=== PATIENT | male | born 1945 | race Caucasian/White ===

== ENCOUNTER → 2016-04-19 20:17 | Outpatient (CLI) | payer MEDICARE, OTHER ==
[2014-02-23 22:22] VITALS: BMI 36.1
[~2016-04-19 20:17] MED LIST: ASPIRIN325 MG PO; BETAPACE 120 M120 MG PO; CARDIZEM CD120 MG PO; CARDURA4 MG PO; GAS-X80 MG PO; HUMALOG MIX 75/10 ML SC; HUMALOG MIX 75/10 ML SQ; HYDRALAZINE HCL50 MG PO; IPRAT-ALBUT 0.5-3 ML UPD; LASIX INJ40 MG/4 ML IVP; LASIX40 MG PO; NITROSTAT0.4 MG SL; PLAVIX75 MG PO; POTASSIUM CHLO10 ME1 PO; PRAVACHOL40 MG PO; PRINIVIL20 MG PO; PROTONIX40 MG PO; REGLAN5 MG PO; ROCEPHIN 1 GM IN1 GM IVPB; RYTHMOL SR225 MG PO; RYTHMOL225 MG PO; STERAPRED 5MG 125 MG PO; ZESTRIL40 MG PO; ZOFRAN4 MG PO
== END | disposition home or self-care (01) ==
LOC: D.SLEEP 20:00
DX: G47.33 Obstructive sleep apnea (adult) (pediatric) (principal)

== ENCOUNTER → 2016-05-10 12:28 | Outpatient (CLI) | payer MEDICARE, OTHER ==
[2014-02-23 22:22] VITALS: BMI 36.1
== END | disposition home or self-care (01) ==
LOC: D.RT 05-04 08:00 → D.RAD 05-04 09:00 → D.RT 12:28
DX: J44.9 Chronic obstructive pulmonary disease, unspecified (principal)

== ENCOUNTER → 2016-08-03 08:29 | Outpatient (CLI) | payer MEDICARE, OTHER ==
[2014-02-23 22:22] VITALS: BMI 36.1
== END | disposition home or self-care (01) ==
LOC: D.US 08:29
DX: I71.4 Abdominal aortic aneurysm, without rupture (principal); I65.23 Occlusion and stenosis of bilateral carotid arteries

== ENCOUNTER → 2017-10-25 10:03 | Outpatient (CLI) | payer MEDICARE, OTHER ==
[2014-02-23 22:22] VITALS: BMI 36.1
== END | disposition home or self-care (01) ==
LOC: D.US 10:03
DX: I71.4 Abdominal aortic aneurysm, without rupture (principal); I65.23 Occlusion and stenosis of bilateral carotid arteries

== ENCOUNTER → 2018-10-03 15:01 | Outpatient (CLI) | payer MEDICARE, OTHER ==
[2014-02-23 22:22] VITALS: BMI 36.1
[~2018-10-03 15:01] MED LIST changes: +CARDIZEM CD180 MG PO; +LEXAPRO10 MG PO; +NOVOLIN 70/30 110 ML SC
== END | disposition home or self-care (01) ==
LOC: D.RT 09-20 10:00 → D.RAD 13:45 → D.RT 16:00
PROVIDERS: ATTEND Internal Medicine Pulmonary Disease
DX: J44.9 Chronic obstructive pulmonary disease, unspecified (principal)

== ENCOUNTER 2018-10-07 08:36 | Inpatient (IN) | payer MEDICARE, OTHER ==
[2018-10-07] VITALS (15 sets, daily range): BP systolic 130–162; BP diastolic 57–79; BMI 36.2
[~2018-10-07] VITALS: Ht 182.9 cm; Wt 120.8 kg
--- NOTE | ~2018-10-07 | CN ---
PATIENT NAME:CHATO DRIVER MEDICAL RECORD: [id number] : 41 LOCATION:[place].[id number] ADMIT DATE: 10/07/18 ACCOUNT: [id number] CONSULTING PHYSICIAN: DANE SHERMAN MD REFERRING PHYSICIAN: KM DE SOUZA MD DATE OF CONSULTATION: 10/07/2018 REQUESTING PHYSICIAN: Aguila Mcduffie MD REASON FOR CONSULTATION: Acute hypoxic hypercapnic respiratory failure and respiratory acidosis. HISTORY OF PRESENT ILLNESS: Mr. Driver is a 72-year-old gentleman who has a history of severe COPD with FEV1 less than 30. The patient underwent PFTs a few days ago and he was doing well for the last 3 days, he has worsening shortness of breath, coughing and the patient was getting more lethargic, so the patient was brought into the ER. On evaluation, he was found out that his CO2 was 84.2 and the pH was 7.18. The patient was put on BiPAP and now he is more awake and alert. Denies any fever and chills, no night sweats. PAST MEDICAL HISTORY: 1. COPD of severe degree. 2. Chronic hypoxic respiratory failure. 3. Obstructive sleep apnea. 4. Gastroesophageal reflux disease. 5. History of carotid artery occlusion. 6. History of abdominal aortic aneurysm without rupture, followed by Dr. Crocker. 7. Tobacco dependence syndrome. PERSONAL AND SOCIAL HISTORY: The patient still continues to smoke. He is a nondrinker. FAMILY HISTORY: Noncontributory. PHYSICAL EXAMINATION: GENERAL: Now, the patient is lying comfortably in bed. He is in mild respiratory distress. He is on BiPAP. VITAL SIGNS: The blood pressure 159/79, pulse is 90, respirations 28, temperature 97.7, and SpO2 is 95% on BiPAP. HEENT: Conjunctivae are pink. Sclerae are not icteric. NECK: Supple, no JVD. CHEST: Chest excursion minimal on both sides. Bilateral crackles and wheeze on forceful expiration. HEART: Rate and rhythm regular, normal sound, no murmur. ABDOMEN: Soft, bowel sounds present. No hepatosplenomegaly. RECTAL: Deferred. EXTREMITIES: No cyanosis, no clubbing. There is 1+ pedal edema. CENTRAL NERVOUS SYSTEM: The patient is awake and alert. There are no obvious cranial nerve abnormalities. LABORATORY DATA: CBC: WBC 9.2, hemoglobin 13.7, hematocrit 43.3, the platelet count 131. Chemistry: Sodium 141, potassium 4.7, BUN is 20, creatinine 1.8. CONSULT REPORT [id number] CHATO DRIVER The proBNP is 1826. The troponin is less than 0.017. Albumin is 3.4. The glucose is 178, BUN is 20, creatinine 1.8. ABG: The pH is 7.188, pCO2 is 84.2, the pO2 is 210, and bicarbonate is 32. IMPRESSION: 1. Sfsox-lc-xhsfsvw hypoxic hypercapnic respiratory failure. 2. Respiratory acidosis secondary to agwlb-gq-mrdqvnl hypoxic hypercapnic respiratory failure. 3. Acute exacerbation of chronic obstructive pulmonary disease. 4. Pulmonary edema. 5. Congestive heart failure. 6. Obesity hypoventilation syndrome. 7. Obstructive sleep apnea. 8. Tobacco dependence syndrome. 9. Gastroesophageal reflux disease. RECOMMENDATIONS: 1. Continue BiPAP at the present setting. 2. Albuterol/ipratropium nebulizer, Brovana and budesonide nebulizer. 3. Adjust the dose of methylprednisolone IV. 4. Continue empiric antibiotic. 5. Lasix 40 mg times 1. 6. Cardiac echo. 7. Consult cardiology. 8. THE PATIENT'S CODE STATUS IS DNR. 9. Follow up labs and chest radiograph. Discussed with family in length. Dr. Mcduffie, thank you for involving me in the care of Mr. Driver. TRANSINT:[id number] Voice Confirmation ID: [id number] DOCUMENT ID: [id number] DANE SHERMAN MD CC: [id number] DICTATION DATE: 10/07/18 1336 THERAPIST'S ASSISTANT: 10/07/18 5062 ADM IN [facility] [address] [place] [address]
[~2018-10-07 08:36] MED LIST changes: -CARDIZEM CD180 MG PO; -LEXAPRO10 MG PO; -NOVOLIN 70/30 110 ML SC
--- NOTE | 2018-10-07 08:46 | NUR ---
EMS REPORTS PT RECIEVED DUONEB AND 125MG SOLUMEDROL
[2018-10-07 08:51] LABS: BASOPHILS 0.2 % (0-2); EOSINOPHILS 2.1 % (0-7); HEMATOCRIT 43.3 % (42.0-54.0); HEMOGLOBIN 13.7 g/dL (13.5-17.5); IMMATURE GRANULOCYTES 0.4 % (0-5); MCH 27.9 pg (26.0-34.0); MCHC 31.6 g/dL (31.0-37.0); MCV 88.2 fL (80.0-100.0); MEAN PLATELET VOLUME 10.6 fL (7.4-10.4); MONOCYTES 8.2 % (2-11); NEUTROPHILS 75.1 % (40-80); PLATELET COUNT 131 10x3/uL (130-400); RBC 4.91 10x6/uL (4.20-6.10); RDW 13.6 % (11.5-14.5); WBC 9.2 10x3/uL (4.8-10.8)
[2018-10-07 09:17] LABS: ALBUMIN 3.4 g/dL (3.4-5.0); ALKALINE PHOSPHATASE 63 U/L (46-116); ALT (SGPT) 11 U/L (10-68); BILIRUBIN - TOTAL 0.43 mg/dL (0.2-1.3); CALC OSMOLALITY 287 mosm/kg (275-300); CALCIUM 8.3 mg/dL (8.5-10.1); CARBON DIOXIDE 31.6 mmol/L (21.0-32.0); CHLORIDE - SERUM 105 mmol/L (98-107); CREATININE - SERUM 1.8 mg/dL (0.6-1.3); POTASSIUM - SERUM 4.7 mmol/L (3.5-5.1); PROTEIN - SERUM 7.6 g/dL (6.4-8.2); SODIUM 141 mmol/L (136-145); UREA NITROGEN 20 mg/dL (7-18); eGFR NON AFRICAN AMERICAN 39 mL/min (90-120)
[2018-10-07 09:18] LABS: APTT 28.3 SECONDS (22.8-39.4); INR 1.18 (0.85-1.17); PROTIME 14.5 SECONDS (11.6-15.0)
[2018-10-07 09:19] LABS: GLUCOSE 178 mg/dL (74-106)
[2018-10-07 09:29] LABS: CKMB 1.5 U/L (0.0-3.6); CREATINE KINASE 88 UL (21-232); PRO BNP 1826 pg/mL (0-125); TROPONIN-I < 0.017 ng/mL (0.000-0.060)
--- NOTE | 2018-10-07 10:45 | NUR ---
PATIENT AWAKE AND ALERT; REPORTS, "I DON'T KNOW WHAT HAPPENED. I REMEMBER TALKING TO EMS AND THEN I DON'T REMEMBER ANYTHING AFTERWARDS." HE IS AWAKE AND ALERT. APPROPRIATE RESPONSES.
[2018-10-07] MEDS ORDERED: NOVOLIN 70/30 110 ML SC (12:08)
[2018-10-07] MEDS ORDERED: CARDIZEM CD180 MG PO (12:14)
[2018-10-07] MEDS ORDERED: BETAPACE 120 M120 MG PO (12:15)
[2018-10-07] MEDS ORDERED: LEXAPRO10 MG PO (12:16)
--- NOTE | 2018-10-07 12:24 | NUR ---
PER DR SHERMAN, DO NOT INFUSE BOLUS RECIEVED ON TRANSFER.
--- NOTE | 2018-10-07 13:55 | NUR ---
DR LINDSAY PAGED REGARDING CONSULT.
--- NOTE | 2018-10-07 13:58 | NUR ---
DR LINDSAY NOTIFIED OF CONSULT NO NEW ORDERS RECIEVED.
--- NOTE | 2018-10-07 14:13 | NUR ---
DR JONES PAGED REGARDING HTN.
--- NOTE | 2018-10-07 15:18 | NUR ---
PER DR JONES RESTART PTS HOME CARDIAC MEDS.
--- NOTE | 2018-10-07 17:05 | NUR ---
425 ML YELLOW URINE NOTED TO URINAL. NO ACUTE DISTRESS NOTED. VSS. WILL CONTINUE PLAN OF CARE.
--- NOTE | 2018-10-07 18:01 | NUR ---
CHG BATH GIVEN AT THIS TIME. TOTAL LINEN CHANGE PROVIDED AT THIS TIME. NO ACUTE DISTRESS NOTED. WILL CONTINUE PLAN OF CARE.
--- NOTE | 2018-10-07 19:00 | NUR ---
SHIFT ASSESSMENT COMPLETE. VS STABLE. NO VISUAL CUES OF DISTRESS NOTED. WILL MONITOR.
--- NOTE | 2018-10-07 21:00 | NUR ---
VS STABLE. NO VISUAL CUES OF DISTRESS NOTED. WILL MONITOR.
--- NOTE | 2018-10-07 23:00 | NUR ---
VS STABLE. NO VISUAL CUES OF DISTRESS NOTED. WILL MONITOR.
[2018-10-08] VITALS (24 sets, daily range): BP systolic 123–169; BP diastolic 60–83
--- NOTE | 2018-10-08 01:00 | NUR ---
VS STABLE. NO VISUAL CUES OF DISTRESS NOTED. WILL MONITOR.
--- NOTE | 2018-10-08 03:00 | NUR ---
VS STABLE. NO VISUAL CUES OF DISTRESS NOTED. WILL MONITOR.
[2018-10-08 03:54] LABS: BASOPHILS 0 % (0-2); EOSINOPHILS 0 % (0-7); HEMATOCRIT 38.1 % (42.0-54.0); HEMOGLOBIN 12.2 g/dL (13.5-17.5); IMMATURE GRANULOCYTES 0.3 % (0-5); LYMPHOCYTES 7.4 % (15-50); MCH 27.8 pg (26.0-34.0); MCV 86.8 fL (80.0-100.0); MEAN PLATELET VOLUME 10.4 fL (7.4-10.4); MONOCYTES 2.3 % (2-11); PLATELET COUNT 135 10x3/uL (130-400); RBC 4.39 10x6/uL (4.20-6.10); RDW 13.4 % (11.5-14.5); WBC 7.7 10x3/uL (4.8-10.8)
[2018-10-08 03:56] LABS: ANION GAP 12.5 mmol/L (8-16); CALCIUM 8.3 mg/dL (8.5-10.1); CARBON DIOXIDE 27.1 mmol/L (21.0-32.0); CREATININE - SERUM 2.1 mg/dL (0.6-1.3); POTASSIUM - SERUM 4.6 mmol/L (3.5-5.1)
--- NOTE | 2018-10-08 05:00 | NUR ---
VS STABLE. NO VISUAL CUES OF DISTRESS NOTED. WILL MONITOR.
--- NOTE | 2018-10-08 07:55 | NUR ---
UP IN BED ON BIPAP AT THIS TIME. NO ACUTE DISTRESS NOTED. PT DENIES ANY NEEDS. 500ML YELLOW URINE NOTED TO URINAL. VSS. PT ASSISTED WITH REPOSITIONING Q2H. WILL CONTINUE PLAN OF CARE.
--- NOTE | 2018-10-08 08:15 | NUR ---
BIPAP REMOVED FOR PT TO EAT BREAKFAST, PT ONLY LASTED A FEW MINUTES BEFORE FEELING LIKE HE NEEDED THE BIPAP BACK IN PLACE BECAUSE OF SHORTNESS OF BREATH. BIPAP IN PLACE.NO ACUTE DISTERSS NOTED. ATBEDSIDE. WILL CNOTINUE PLAN OF CARE.
--- NOTE | 2018-10-08 09:44 | NUR ---
LYING IN BED ON BIPAP AT THIS TIME.NO ACUTE DISTRESS NOTED. VSS. WILL CONTINUE PLAN OF CARE.
--- NOTE | 2018-10-08 11:08 | NUR ---
UP IN BED ON BIPAP AT THIS TIME, AT BEDSIDE. CALL LIGHT IN REACH. VSS. NO ACUTE DISTRESS NOTED. WILL CONTINUE PLAN OF CARE.
--- NOTE | 2018-10-08 12:01 | NUR ---
PT COMPLAINT OF COUGH, ALSO LAST BM WAS 3 DAYS AGO, BOWEL SOUNDS HYPOACTIVE. DR AYALA NOTIFIED, ORDERS RECEIVED.
--- NOTE | 2018-10-08 14:09 | NUR ---
RESTING ON BIPAP AT THIS TIME, RESPIRATIONS UNLABORED, AWAKENS EASILY WHEN SPOKEN TO. NO ACUTE DISTRESSN OTED. VSS. WILL CONTINUE PLAN OF CARE.
--- NOTE | 2018-10-08 14:30 | NUR ---
WAS ABLE TO TOLERATE BIPAP OFF FOR 30 MIN DURING MEALTIME AT 5L HIGH FLOW BEFORE FEELING SHORT OF BREATH AND NEEDING BIPAP BACK ON. VSS. NO ACUTE DISTRESS NOTED. WILL CONTINUE PLAN OF CARE.
--- NOTE | 2018-10-08 15:08 | NUR ---
EPISODE OF AFIB, VERY BRIEF FOLLOWED BY SINUS RHYTHM. DR LINDSAY NOTIFIED OF THIS, ORDERED DIG 0.25 X 1 TIME IV. ORDER PLACED.
--- NOTE | 2018-10-08 17:28 | NUR ---
LARGE SOFT LIGHT BROWN BOWEL MOVEMENT NOTED AT THIS TIME VIA BEDPAN, BED BATH GIVEN, TOTAL LINEN CHANGE PROVIDED. NO ACUTE DISTRESS NOTED. VSS. WILL CONTINUE PLAN OF CARE.
--- NOTE | 2018-10-08 19:20 | NUR ---
PT RECEIVED WITH EYES OPEN WATCHING TV. NO COMPLAINTS OF PAIN. NO OTHER NEEDS MADE KNOWN. WILL CONTINUE TO OBSERVE. CALL LIGHT IN REACH.
--- NOTE | 2018-10-08 21:25 | NUR ---
RECEIVED MEDICATIONS PER MAY. TOLERATED WELL. WILL CONTINUE TO OBSERVE. CALL LIGHT IN REACH. PLACED ON BIPAP PER REQUEST.
--- NOTE | 2018-10-08 23:59 | NUR ---
PT INCONTINENT OF BOWEL, PERICARE PROVIDED WITH LINENS CHANGED. PT TOLERATED WELL. REASSESSMENT COMPLETED, SEE FLOW SHEET. PLACED ON BIPAP PER REQUEST. CALL LIGHT IN REACH. WILL CONTINUE TO OBSERVE.
[2018-10-09] VITALS (24 sets, daily range): BP systolic 133–177; BP diastolic 61–116; Ht 182.9 cm; Wt 120.8 kg
--- NOTE | 2018-10-09 01:17 | NUR ---
PT WITH EYES OPEN. REQUEST WATER WITH FRESH WATER GIVEN. BIPAP REMOVE FOR DRINK AND REPLACE. HOB LOWERED FOR COMFORT. CALL LIGHT IN REACH. WILL CONTINUE TO OBSERVE.
--- NOTE | 2018-10-09 03:47 | NUR ---
REASSESSMENT COMPLETED, SEE FLOW SHEET. CALL LIGHT IN REACH. WILL CONTINUE TO OBSERVE.
[2018-10-09 05:11] LABS: ALBUMIN 2.9 g/dL (3.4-5.0); ANION GAP 6.5 mmol/L (8-16); BILIRUBIN - TOTAL 0.19 mg/dL (0.2-1.3); CALCIUM 8.3 mg/dL (8.5-10.1); CARBON DIOXIDE 28.9 mmol/L (21.0-32.0); CREATININE - SERUM 2.1 mg/dL (0.6-1.3); POTASSIUM - SERUM 4.4 mmol/L (3.5-5.1); PROTEIN - SERUM 6.8 g/dL (6.4-8.2)
[2018-10-09 05:36] LABS: HEMATOCRIT 37.9 % (42.0-54.0); HEMOGLOBIN 12.1 g/dL (13.5-17.5); MCH 27.6 pg (26.0-34.0); MCHC 31.9 g/dL (31.0-37.0); MCV 86.5 fL (80.0-100.0); MEAN PLATELET VOLUME 10.9 fL (7.4-10.4); PLATELET COUNT 158 10x3/uL (130-400); RBC 4.38 10x6/uL (4.20-6.10); RDW 13.7 % (11.5-14.5)
[2018-10-09 05:38] LABS: WBC 10.7 10x3/uL (4.8-10.8)
--- NOTE | 2018-10-09 08:28 | NUR ---
0700 PT RECIEVED ALERT AND ORIENTED, ON BIPAP, L HAND PIV WITH NS KVO, URINAL WITHIN REACH, DENIES ALL NEEDS, SEE SHIFT ASSESSMENT FOR DETAILS 0830 PLACED ON NC, ATE 25% BREAKFAST AND TOOK AM MEDS, SPO2 DROPPING TO 86 AND BIPAP REPLACED, SPO2 AMY TO 96%
[2018-10-09 08:47] LABS: HYPOCHROMASIA OCC; LYMPHOCYTES 9 % (15-50); MONOCYTES 8 % (2-11); NEUTROPHILS 82 % (40-80); PLATELET ESTIMATE NORMAL; ROULEAUX OCC
--- NOTE | 2018-10-09 12:00 | NUR ---
PLACED ON 6L NC, ATE LUNCH, PLACED BACK ON BIPAP FOR SOB
--- NOTE | 2018-10-09 13:31 | NUR ---
DR GODOY NOT OK WITH TRANSFER
--- NOTE | 2018-10-09 18:29 | NUR ---
1500 PT REPOSITIONED 1700 ATE 75% DINNER ON 6L O2 THEN PLACED ON BIPAP 1800 BM NOTED, LINENS CHANGED
--- NOTE | 2018-10-09 19:30 | NUR ---
PT RECEIVED WITH EYES OPEN WATCHING TV. ON BIPAP. NO S/S OF DISTESS. ASSESSMENT COMPLETED, SEE FLOW SHEET. NO NEEDS MADE KNOWN. CALL LIGHT IN REACH. WILL CONTINUE TO OBSERVE.
--- NOTE | 2018-10-09 20:15 | NUR ---
PT ON N/C 4LPM, TOLERATING WELL. RECEIVED SCHEDULED MEDICATIONS PER MAR. WILL CONTINUE TO OBSERVE.
--- NOTE | 2018-10-09 21:37 | NUR ---
SPOKE WITH TITI CONTRERAS CONCERNING BLOOD PRESSURES 170'S, NO ORDERS GIVEN, CONTINUE TO OBSERVE.
--- NOTE | 2018-10-09 22:26 | NUR ---
RECEIVED ORDER FROM DR LOPEZ FOR NORVASC 10MG DAILY, GIVE ON NOW. FOR MAINTAINING SYSTOLIC B/P >160. MEDICATION GIVEN PO AND TOLERATED WELL. WILL CONTINUE TO OBSERVE.
--- NOTE | 2018-10-09 23:00 | NUR ---
PT ON BIPAP, TOLERATING WELL. NO NEEDS NOTED. REASSESSMENT COMPLETED, SEE FLOW SHEET. CALL LIGHT IN REACH. WILL CONTINUE TO OBSERVE.
[2018-10-10] VITALS (24 sets, daily range): BP systolic 141–178; BP diastolic 63–85
--- NOTE | 2018-10-10 01:10 | NUR ---
PT INCONTINENT OF BOWEL WITH PERICARE PROVIDED, WITH PAD CHANGED. CONTINUES BIPAP. CALL LIGHT IN REACH. WILL CONTINUE TO OBSERVE.
--- NOTE | 2018-10-10 03:25 | NUR ---
REASSESSMENT COMPLETED, SEE FLOW SHEET. WILL CONTINUE TO OBSERVE.
[2018-10-10 04:31] LABS: BASOPHILS 0 % (0-2); EOSINOPHILS 0 % (0-7); HEMATOCRIT 37.9 % (42.0-54.0); HEMOGLOBIN 12.2 g/dL (13.5-17.5); IMMATURE GRANULOCYTES 0.2 % (0-5); LYMPHOCYTES 4.7 % (15-50); MCH 27.7 pg (26.0-34.0); MCHC 32.2 g/dL (31.0-37.0); MCV 86.1 fL (80.0-100.0); MEAN PLATELET VOLUME 10.6 fL (7.4-10.4); NEUTROPHILS 91.1 % (40-80); PLATELET COUNT 145 10x3/uL (130-400); RDW 13.4 % (11.5-14.5); WBC 9.9 10x3/uL (4.8-10.8)
[2018-10-10 04:48] LABS: ALBUMIN 2.8 g/dL (3.4-5.0); CREATININE - SERUM 1.6 mg/dL (0.6-1.3); PROTEIN - SERUM 6.4 g/dL (6.4-8.2)
[2018-10-10 05:01] LABS: ANION GAP 11.4 mmol/L (8-16); BILIRUBIN - TOTAL 0.23 mg/dL (0.2-1.3); CARBON DIOXIDE 29.3 mmol/L (21.0-32.0); POTASSIUM - SERUM 4.7 mmol/L (3.5-5.1)
--- NOTE | 2018-10-10 07:00 | NUR ---
PATIENT ON BIPAP 45%. SATURATION 93%. RR 23. PATIENT RESTING. TURNED. WILL CONTINUE TO MONITOR.
--- NOTE | 2018-10-10 09:09 | NUR ---
FAMILY AT BEDSIDE. PATIENT RESTING. PATIENT CURRENTLY ON 4 L NC SATURATION OF 89%. CLEANED UP PATIENT FOR BOWEL MOVEMENT. WILL CONTINUE TO MONITOR
--- NOTE | 2018-10-10 10:31 | NUR ---
PHYSICAL THERAPY AT BEDSIDE. PATIENT IN CHAIR ON 4 L NC.
--- NOTE | 2018-10-10 11:00 | NUR ---
PATIENT IN CHAIR EATING LUNCH. PATIENT ON 4 L NC. VSS. CALL LIGHT WITHIN REACH. WILL CONTINUE TO MONITOR.
--- NOTE | 2018-10-10 13:00 | NUR ---
PATIENT IN BED. FAMILY AT BEDSIDE. PATIENT TURNED. ON BIPAP. VSS. WILL CONTINUE TO MONITOR.
--- NOTE | 2018-10-10 15:26 | MORECARE ---
CASE MANAGEMENT DISCHARGE SUMMARY PATIENT: CHATO DAMON GENE UNIT: [id number] ADM DATE: 10/07/18 AGE: 72 : 43 SEX: M ROOM/BED: D.2307 AUTHOR: CATHERINE DENNEY PHYSICIAN: REFERRING PHYSICIAN: KM DE SOUZA MD DATE OF SERVICE: 10/10/18 Discharge Plan Patient Name: CHATO DAMON Facility: [facility]:[place] : 1945 Planned Disposition: Home Anticipated Discharge Date: Discharge Date: Expected LOS: Initial Reviewer: [email or web address] Initial Review Date: 10/07/2018 Generated: 10/10/18 4:26 pm Patient Name: CHATO DAMON Page [phone] at 1526 All edits/amendments must be made on the electronic document DICTATION DATE: 10/10/18 1526 ACCOUNTS SPECIALIST: LEONIDAS 10/10/18 1526 RPT#: [id number] DC DATE: STATUS: ADM IN [facility] [address] [place] [address] END OF REPORT
--- NOTE | 2018-10-10 15:30 | NUR ---
PATIENT IN BED. PATIENT REPORT NAUSEA. ZOFRAN GIVEN. VSS. PATIENT NOW RESTING. WILL CONTINUE TO MONITOR.
--- NOTE | 2018-10-10 15:34 | MORECARE ---
CASE MANAGEMENT DISCHARGE SUMMARY PATIENT: CHATO DAMON GENE UNIT: [id number] ADM DATE: 10/07/18 AGE: 72 : 43 SEX: M ROOM/BED: D.2307 AUTHOR: JUMANA,DOC PHYSICIAN: REFERRING PHYSICIAN: KM DE SOUZA MD DATE OF SERVICE: 10/10/18 Discharge Plan Patient Name: CHATO DAMON Facility: [facility]:[place] : 1945 Planned Disposition: Home Anticipated Discharge Date: Discharge Date: Expected LOS: Initial Reviewer: [email or web address] Initial Review Date: 10/07/2018 Generated: 10/10/18 4:34 pm Comments DCP- Discharge Planning Updated by [email or web address]: Ramila Hastings on 10/10/18 2:[address] Patient Name: CHATO DAMON Admission Status: ER Accout number: [id number] Admission Date: 10-07-2018 : 1945 Admission Diagnosis: Attending: KM GARCIA Current LOS: 3 Anticipated DC Date: Planned Disposition: Home Primary Insurance: MEDICARE A & B Discharge Planning Comments: CM met with patient to complete initial dc planning assessment. CM educated patient on the CM role and verbal consent given by patient to complete assessment. Patient lives at home with his where he is independent with his care. At discharge patient plans to return home and feels this is a safe discharge. CM discussed availability of home health, rehab services, and medical equipment. Patient has a CPAP and home o2 ( can't remember provider) Patient denied known discharge needs at this time. Patient states he will have transport him home. CM will continue to follow and will assist as needed with dc plans/needs. New Accounts Clerk: Ramila Hastings DCPIA - Discharge Planning Initial Assessment Updated by [email or web address]: Ramila Hastings on 10/10/18 3:31 pm * Is the patient Alert and Oriented? Yes * How many steps to enter\exit or inside your home? * PCP KAREN * Pharmacy [facility] - 70[facility] * Preadmission Environment Home with Family * ADLs Independent * Other Equipment CPAP, Home 02 /portable 02 * List name and contact numbers for known caregivers / representatives who currently or will assist patient after discharge: RESHMA DAMON - - [phone] * Verbal permission to speak to the caregivers and representatives has been obtained from the patient. Yes * Community resources currently utilized None * Additional services required to return to the preadmission environment? No * Can the patient safely return to the preadmission environment? Yes * Has this patient been hospitalized within the prior 30 days at any hospital? No Last DP export: 10/10/18 2:26 p Patient Name: CHATO DAMON Page [phone] at 1534 All edits/amendments must be made on the electronic document DICTATION DATE: 10/10/18 1533 SKATE BOARDER: LEONIDAS 10/10/18 1533 RPT#: [id number] DC DATE: STATUS: ADM IN [facility] [address] [place] [address] END OF REPORT
--- NOTE | 2018-10-10 17:00 | NUR ---
PATIENT IN CHAIR EATING DINNER. VSS. FAMILY AT BEDSIDE. WILL CONTINUE TO MONITOR. CALL LIGHT WITHINR REACH. CHAIR LOCKED. W\
--- NOTE | 2018-10-10 19:59 | NUR ---
PT RECEIVED UP IN CHAIR AT BEDSIDE WATCHING TV. NO S/S OF DISTRESS. RECEIVED POPSICLE PER REQUEST. NO COMPLAINTS OF PAIN. ON N/C 4LPM. CALL LIGHT IN REACH. WILL CONTINUE TO OBSERVE.
--- NOTE | 2018-10-10 22:14 | NUR ---
PT ASSISTED BACK TO BED FROM CHAIR, PRIOR TO TRANSFER PT BEGAN COUGHING AND SPO2 DROPPED TO MID 80'S. PT ENCOURAGED TO BREATH THROUGH NOSE WITH INCREASE IN SPO2. WHEN IN BED PT PLACED ON BIPAP, TOLERATING WELL. RECEIVED MEDICATIONS PER MAY. CALL LIGHT IN REACH. WILL CONTINUE TO OBSERVE.
[2018-10-11] VITALS (24 sets, daily range): BP systolic 129–186; BP diastolic 52–80
--- NOTE | 2018-10-11 01:42 | NUR ---
PT ON BIPAP, TOLERATING WELL. RESTING WITH EYES CLOSED. WILL CONTINUE TO OBSERVE.
--- NOTE | 2018-10-11 03:25 | NUR ---
REASSESSMENT COMPLETED, SEE FLOW SHEET. ON BIPAP.
[2018-10-11 04:30] LABS: BASOPHILS 0 % (0-2); EOSINOPHILS 0 % (0-7); HEMATOCRIT 39.1 % (42.0-54.0); HEMOGLOBIN 12.4 g/dL (13.5-17.5); IMMATURE GRANULOCYTES 0.5 % (0-5); LYMPHOCYTES 5.6 % (15-50); MCH 27.4 pg (26.0-34.0); MCHC 31.7 g/dL (31.0-37.0); MCV 86.5 fL (80.0-100.0); MEAN PLATELET VOLUME 10.6 fL (7.4-10.4); MONOCYTES 5.6 % (2-11); NEUTROPHILS 88.3 % (40-80); PLATELET COUNT 136 10x3/uL (130-400); RBC 4.52 10x6/uL (4.20-6.10); RDW 13.3 % (11.5-14.5)
[2018-10-11 04:45] LABS: WBC 7.4 10x3/uL (4.8-10.8)
[2018-10-11 04:59] LABS: ALBUMIN 2.7 g/dL (3.4-5.0); ANION GAP 8.5 mmol/L (8-16); BILIRUBIN - TOTAL 0.22 mg/dL (0.2-1.3); CALCIUM 7.9 mg/dL (8.5-10.1); CARBON DIOXIDE 31.8 mmol/L (21.0-32.0); CREATININE - SERUM 1.5 mg/dL (0.6-1.3); POTASSIUM - SERUM 5.3 mmol/L (3.5-5.1); PROTEIN - SERUM 6.2 g/dL (6.4-8.2)
--- NOTE | 2018-10-11 06:35 | NUR ---
IN BED WITH EYES CLOSED AND CHEST RISING. ON BIPAP.
--- NOTE | 2018-10-11 07:00 | NUR ---
PATIENT RESTING. REPORT RECIEVED. SHIFT ASSESSMENT COMPLETED. VSS. WILL CONTINUE TO MONITOR.
--- NOTE | 2018-10-11 07:00 | NUR ---
REPORT RECEIVED. ASSESSMENT COMPLETE PER FLOW SHEET. VSS. NO NEW CHANGES WILL CONTINUE TO MONITOR
--- NOTE | 2018-10-11 09:00 | NUR ---
COMPLETE LINEN CHANGE. CHG BATH GIVEN AT THIS TIME. 4 L NC. RESPIRATORY AT BEDSIDE. WILL CONTINUE TO MONITOR
--- NOTE | 2018-10-11 09:38 | NUR ---
Nutrition follow-up: Pt up to chair; very SOB Diet: ADA with Glucerna TID PO intake 90% average of last 6 meals Labs reviewed Wt: 280# Labs reviewed; glucose elevated due to steroid RDN following.
--- NOTE | 2018-10-11 10:00 | NUR ---
PHYSICAL THEARPY AT BEDSIDE. AMBULATED AROUND ROOM. PATIENT IN CHAIR NOW. 4 L NC. SATURATION 90%. VSS. WILL CONTINUE TO MONITOR.
--- NOTE | 2018-10-11 13:00 | NUR ---
PATIENT BACK IN BED. VSS. CALL LIGHT WITHIN REACH. BED LOW AND LOCKED. EXPIRATORY WHEEZES HEARD ON AUSCULTATION BILATERALLY. PATIENT ALERT AND ORIENTED. TURNED. ALL LINES CAPPED AND LABELED. WILL CONTINUE TO MONITOR
--- NOTE | 2018-10-11 14:00 | NUR ---
PHYSICAL THERAPY AT BEDSIDE.
--- NOTE | 2018-10-11 15:22 | NUR ---
PATIENT IN BED. ON BIPAP. RESTING. TURNED. NEW LINEN CHANGE. VSS WILL CONTINUE TO MONITOR
--- NOTE | 2018-10-11 17:15 | NUR ---
FAMILY AT BEDSIDE. PATIENT IN BED. DOES NOT WANT TO GET UP TO CHAIR TO EAT BECAUSE HE FEELS WEAK. NO DISTRESS AT THIS TIME. PATIENT ON 4 L NC. WILL CONTINUE TO MONITOR
--- NOTE | 2018-10-11 19:25 | NUR ---
PT RECEIVED SITTING ON SIDE OF BED. URINAL EMPTIED. PT STARTED LASIX PRIOR TO SHIFT. NO OTHER NEEDS MADE KNOWN. CALL LIGHT IN REACH. WILL CONTINUE TO OBSERVE.
--- NOTE | 2018-10-11 21:50 | NUR ---
MEDICATIONS GIVEN PER MAR, TOLERATED WELL. ON N/C WITH SP02 93 TO 94%. WILL CONTINUE TO OBSERVE.
--- NOTE | 2018-10-11 23:58 | NUR ---
PT PULLED BIPAP OFF AND SAT UP ON SIDE OF BED TO USE URINAL. N/C PROVIDED AND MAINTAINING SPO2 >92%. URINAL EMPTIED AND PT LAID BACK DOWN AND BIPAP ON. WILL CONTINUE TO OBSERVE.
[2018-10-12] VITALS (10 sets, daily range): BP systolic 144–170; BP diastolic 57–86
--- NOTE | 2018-10-12 00:31 | NUR ---
REASSESSMENT COMPLETED, SEE FLOW SHEET. WILL CONTINUE TO OBSERVE.
[2018-10-12 04:53] LABS: BASOPHILS 0.1 % (0-2); EOSINOPHILS 0 % (0-7); HEMATOCRIT 39.6 % (42.0-54.0); HEMOGLOBIN 12.8 g/dL (13.5-17.5); IMMATURE GRANULOCYTES 0.9 % (0-5); LYMPHOCYTES 5.9 % (15-50); MCH 27.5 pg (26.0-34.0); MCHC 32.3 g/dL (31.0-37.0); MCV 85.2 fL (80.0-100.0); MONOCYTES 3.5 % (2-11); NEUTROPHILS 89.6 % (40-80); PLATELET COUNT 153 10x3/uL (130-400); RBC 4.65 10x6/uL (4.20-6.10); RDW 13.3 % (11.5-14.5)
[2018-10-12 05:32] LABS: ALBUMIN 2.9 g/dL (3.4-5.0); BILIRUBIN - TOTAL 0.29 mg/dL (0.2-1.3); CARBON DIOXIDE 32.9 mmol/L (21.0-32.0); CREATININE - SERUM 1.8 mg/dL (0.6-1.3); PROTEIN - SERUM 6.3 g/dL (6.4-8.2)
[2018-10-12 05:34] LABS: WBC 10.3 10x3/uL (4.8-10.8)
[2018-10-12 05:51] LABS: ANION GAP 10.4 mmol/L (8-16); POTASSIUM - SERUM 4.3 mmol/L (3.5-5.1)
--- NOTE | 2018-10-12 06:44 | NUR ---
PT TO BEDSIDE COMMODE, MEDIUM SOFT FORM BM NOTED.
--- NOTE | 2018-10-12 07:00 | NUR ---
REPORT RECEVIED FROM THE OFF GOING RN. SEE ASSESSMENT IN THE PTS FLOW SHEET. VSS AT THIS TIME. CALL LIGHT IN REACH. WILL CONT POC.
--- NOTE | 2018-10-12 08:15 | NUR ---
PT ASSISTED OOB AND INTO HIS BEDSIDE CHAIR. PT UP EATING HIS BREAKFAST. PT TOLERATING WELL. VSS. WILL CONT POC.
--- NOTE | 2018-10-12 09:20 | NUR ---
AM MEDS GIVEN WITH NO ISSUES. LEFT WRIST IV LEAKING AND IT WAS DC WITH THE CATH TIP INTACT.
--- NOTE | 2018-10-12 09:31 | NUR ---
DR GODOY IN THE UNIT. OK FOR THE PT TO TRANSFER TO THE FLOOR.
--- NOTE | 2018-10-12 12:09 | NUR ---
REPORT GIVEN TO RESHMA LANDAVERDE. ICU STAFF TO TRANSFER SOON.
--- NOTE | 2018-10-12 13:13 | NUR ---
PT RECIEVED FROM ICU. VSS. 4L NC. IV NOTED TO LEFT HAND SALINE LOCKED. GENERALIZED REDNESS NOTED TO LEFT UPPER EXTREMITY. SCD'S REAPPLIED. AT BEDSIDE. RECIEVED PT WITHOUT 1130 INSULIN TX. FSBS 412. DENIES NEEDS AT THIS TIME. RR EVEN BUT SLIGHTLY LABORED. WILL CONTINUE TO MONITOR.
[2018-10-12 17:15] LABS: THYROID STIMULATING HORMONE 0.61 uIU/mL (0.36-3.74)
--- NOTE | 2018-10-12 18:03 | NUR ---
ASSISTED PT TO BATHROOM. FAIRLY UNSTEADY GAIT.
--- NOTE | 2018-10-12 18:27 | MORECARE ---
CASE MANAGEMENT DISCHARGE SUMMARY PATIENT: CHATO DAMON GENE UNIT: [id number] ADM DATE: 10/07/18 AGE: 73 : 43 SEX: M ROOM/BED: D.1212 AUTHOR: JUMANA,DOC PHYSICIAN: REFERRING PHYSICIAN: KM DE SOUZA MD DATE OF SERVICE: 10/12/18 Discharge Plan Patient Name: CHATO DAMON Facility: [facility]:[place] : 1945 Planned Disposition: Home Anticipated Discharge Date: Discharge Date: Expected LOS: Initial Reviewer: [email or web address] Initial Review Date: 10/07/2018 Generated: 10/12/18 7:27 pm DCP- Discharge Planning Updated by [email or web address]: Ramila Hastings on 10/10/18 2:[address] Patient Name: CHATO DAMON Admission Status: ER Accout number: [id number] Admission Date: 10-07-2018 : 1945 Admission Diagnosis: Attending: KM GARCIA Current LOS: 3 Anticipated DC Date: Planned Disposition: Home Primary Insurance: MEDICARE A & B Discharge Planning Comments: CM met with patient to complete initial dc planning assessment. CM educated patient on the CM role and verbal consent given by patient to complete assessment. Patient lives at home with his where he is independent with his care. At discharge patient plans to return home and feels this is a safe discharge. CM discussed availability of home health, rehab services, and medical equipment. Patient has a CPAP and home o2 ( can't remember provider) Patient denied known discharge needs at this time. Patient states he will have transport him home. CM will continue to follow and will assist as needed with dc plans/needs. Scanner Supervisor: Ramila Hastings DCPIA - Discharge Planning Initial Assessment Updated by [email or web address]: Ramila Hastings on 10/10/18 3:31 pm * Is the patient Alert and Oriented? Yes * How many steps to enter\exit or inside your home? * PCP KAREN * Pharmacy [facility] - [facility] * Preadmission Environment Home with Family * ADLs Independent * Other Equipment CPAP, Home 02 /portable 02 * List name and contact numbers for known caregivers / representatives who currently or will assist patient after discharge: RESHMA DAMON - - [phone] * Verbal permission to speak to the caregivers and representatives has been obtained from the patient. Yes * Community resources currently utilized None * Additional services required to return to the preadmission environment? No * Can the patient safely return to the preadmission environment? Yes * Has this patient been hospitalized within the prior 30 days at any hospital? No External Providers [facility] Next Contact Date: Service Request Date: Service Type: Resolution: Reviewer: Comments: Last DP export: 10/10/18 2:34 p Patient Name: CHATO DAMON Page [phone] at 1827 All edits/amendments must be made on the electronic document DICTATION DATE: 10/12/181826 WASTEWATER PLANT CIVIL ENGINEER: LEONIDAS 10/12/181826 RPT#: [id number] DC DATE: STATUS: ADM IN [facility] [address] [place] [address] END OF REPORT
--- NOTE | 2018-10-12 18:47 | MORECARE ---
CASE MANAGEMENT DISCHARGE SUMMARY PATIENT: CHATO DAMON UNIT: [id number] ADM DATE: 10/07/18 AGE: 73 : 43 SEX: M ROOM/BED: D.1212 AUTHOR: JUMANA,DOC PHYSICIAN: REFERRING PHYSICIAN: KM DE SOUZA MD DATE OF SERVICE: 10/12/18 Discharge Plan Patient Name: CHATO DAMON Facility: [facility]:[place] : 1945 Planned Disposition: Home Anticipated Discharge Date: Discharge Date: Expected LOS: Initial Reviewer: [email or web address] Initial Review Date: 10/07/2018 Generated: 10/12/18 7:47 pm Comments DCP- Discharge Planning Updated by [email or web address]: Ramila Hastings on 10/12/18 5:[address] CM notified of patient requesting Home Health services upon discharge. [facility] signed for [facility]. CM contacted [facility] and faxed records explained that uncertain of when discharge will be. Will need home health order if physician approves. CM will continue to follow and assist as needed with discharge planning / needs. DCP- Discharge Planning Updated by [email or web address]: Ramila Hastings on 10/10/18 2:[address] Patient Name: CHATO DAMON Admission Status: ER Accout number: [id number] Admission Date: 10-07-2018 : 1945 Admission Diagnosis: Attending: KM GARCIA Current LOS: 3 Anticipated DC Date: Planned Disposition: Home Primary Insurance: MEDICARE A & B Discharge Planning Comments: CM met with patient to complete initial dc planning assessment. CM educated patient on the CM role and verbal consent given by patient to complete assessment. Patient lives at home with his where he is independent with his care. At discharge patient plans to return home and feels this is a safe discharge. CM discussed availability of home health, rehab services, and medical equipment. Patient has a CPAP and home o2 ( can't remember provider) Patient denied known discharge needs at this time. Patient states he will have transport him home. CM will continue to follow and will assist as needed with dc plans/needs. Drill Operator: Ramila Hastings DCPIA - Discharge Planning Initial Assessment Updated by [email or web address]: Ramila Hastings on 10/10/18 3:31 pm * Is the patient Alert and Oriented? Yes * How many steps to enter\exit or inside your home? * PCP KAREN * [facility] [place] - [facility] * Preadmission Environment Home with Family * ADLs Independent * Other Equipment CPAP, Home 02 /portable 02 * List name and contact numbers for known caregivers / representatives who currently or will assist patient after discharge: RESHMA DAMON - - [phone] * Verbal permission to speak to the caregivers and representatives has been obtained from the patient. Yes * Community resources currently utilized None * Additional services required to return to the preadmission environment? No * Can the patient safely return to the preadmission environment? Yes * Has this patient been hospitalized within the prior 30 days at any hospital? No Last DP export: 10/12/18 5:27 pm Patient Name: CHATO DAMON Page [id number] at 1847 All edits/amendments must be made on the electronic document DICTATION DATE: 10/12/181846 RICE FARMWORKER: LEONIDAS 10/12/181846 RPT#: [id number] DC DATE: STATUS: ADM IN [facility] [address] [place] [address] END OF REPORT
--- NOTE | 2018-10-12 18:55 | MORECARE ---
CASE MANAGEMENT DISCHARGE SUMMARY PATIENT: CHATO DAMON UNIT: [id number] ADM DATE: 10/07/18 AGE: 73 : 43 SEX: M ROOM/BED: D.1212 AUTHOR: JUMANA,DOC PHYSICIAN: REFERRING PHYSICIAN: KM DE SOUZA MD DATE OF SERVICE: 10/12/18 Discharge Plan Patient Name: CHATO DAMON Facility: [facility]:[place] : 1945 Planned Disposition: Home Anticipated Discharge Date: Discharge Date: Expected LOS: Initial Reviewer: [email or web address] Initial Review Date: 10/07/2018 Generated: 10/12/18 7:55 pm Comments DCP- Discharge Planning Updated by [id number]: Ramila Hastings on 10/12/18 5:[address] CM notified of patient requesting Home Health services upon discharge. [facility] signed for [facility]. CM contacted [facility] and faxed records explained that uncertain of when discharge will be. Will need home health order if physician approves. CM will continue to follow and assist as needed with discharge planning / needs. DCP- Discharge Planning Updated by [email or web address]: Ramila Hastings on 10/10/18 2:[address] Patient Name: CHATO DAMON Admission Status: ER Accout number: [id number] Admission Date: 10-07-2018 : 1945 Admission Diagnosis: Attending: KM GARCIA Current LOS: 3 Anticipated DC Date: Planned Disposition: Home Primary Insurance: MEDICARE A & B Discharge Planning Comments: CM met with patient to complete initial dc planning assessment. CM educated patient on the CM role and verbal consent given by patient to complete assessment. Patient lives at home with his where he is independent with his care. At discharge patient plans to return home and feels this is a safe discharge. CM discussed availability of home health, rehab services, and medical equipment. Patient has a CPAP and home o2 ( can't remember provider) Patient denied known discharge needs at this time. Patient states he will have transport him home. CM will continue to follow and will assist as needed with dc plans/needs. Retail Performance Specialist: Ramila Hastings DCPIA - Discharge Planning Initial Assessment Updated by [email or web address]: Ramila Hastings on 10/10/18 3:31 pm * Is the patient Alert and Oriented? Yes * How many steps to enter\exit or inside your home? * PCP KAREN * [facility] - [facility] * Preadmission Environment Home with Family * ADLs Independent * Other Equipment CPAP, Home 02 /portable 02 * List name and contact numbers for known caregivers / representatives who currently or will assist patient after discharge: RESHMA DAMON - - [phone] * Verbal permission to speak to the caregivers and representatives has been obtained from the patient. Yes * Community resources currently utilized None * Additional services required to return to the preadmission environment? No * Can the patient safely return to the preadmission environment? Yes * Has this patient been hospitalized within the prior 30 days at any hospital? No Last DP export: 10/12/18 5:47 pm Patient Name: CHATO DAMON Page [id number] at 1855 All edits/amendments must be made on the electronic document DICTATION DATE: 10/12/181853 SUBSTATION OPERATOR: LEONIDAS 10/12/181853 RPT#: [id number] DC DATE: STATUS: ADM IN [facility] [address] [place] [address] END OF REPORT
--- NOTE | 2018-10-12 20:13 | NUR ---
BEDSIDE SHIFT REPORT RECEIVED FROM DAY SHIFT NURSE, PT CARE ASSUMED. PT AAOX4, LYING IN BED, BIPAP IN USE WITH O2 @ 4L/MIN. GENERALIZED EDEMA AND REDNESS NOTED TO LUE. BILATERAL SCD'S IN USE. PT DENIES PAIN OR ANY OTHER NEEDS AT THIS TIME. BED IN LOWEST POSITION, SR X2, CALL LIGHT WITHIN REACH. WILL CONTINUE TO MONITOR.
--- NOTE | 2018-10-12 23:45 | NUR ---
PT LYING IN BED, BIPAP IN USE, EYES CLOSED, RESPIRATIONS EVEN AND NONLABORED, NO S/S OF DISTRESS. EASILY AROUSED BY VOICE. REFUSES VS AT THIS TIME, "DIDN'T GET MUCH REST LAST NIGHT OR TODAY," PER PT. BED IN LOWEST POSITION, SR X2, CALL LIGHT AND URINAL WITHIN REACH. WILL CONTINUE TO MONITOR.
[2018-10-13 04:36] VITALS: BP 146/59
--- NOTE | 2018-10-13 07:20 | NUR ---
PT RESTING IN BED. SHIFT ASSESSMENT PERFORMED. DENIES ANY NEEDS AT THIS TIME, WILL CONT TO FOLLOW POC
[2018-10-13 07:25] LABS: ALBUMIN 2.9 g/dL (3.4-5.0); ANION GAP 5.9 mmol/L (8-16); BILIRUBIN - TOTAL 0.44 mg/dL (0.2-1.3); CALCIUM 7.8 mg/dL (8.5-10.1); CARBON DIOXIDE 38.9 mmol/L (21.0-32.0); CREATININE - SERUM 1.7 mg/dL (0.6-1.3); POTASSIUM - SERUM 3.8 mmol/L (3.5-5.1); PROTEIN - SERUM 6.3 g/dL (6.4-8.2)
[2018-10-13 07:26] VITALS: BP 179/64
[2018-10-13 08:12] LABS: BASOPHILS 0.1 % (0-2); EOSINOPHILS 0 % (0-7); HEMATOCRIT 41.9 % (42.0-54.0); HEMOGLOBIN 13.9 g/dL (13.5-17.5); IMMATURE GRANULOCYTES 1.1 % (0-5); LYMPHOCYTES 6.9 % (15-50); MCH 28.1 pg (26.0-34.0); MCHC 33.2 g/dL (31.0-37.0); MCV 84.6 fL (80.0-100.0); MEAN PLATELET VOLUME 10.7 fL (7.4-10.4); MONOCYTES 6.6 % (2-11); NEUTROPHILS 85.3 % (40-80); PLATELET COUNT 137 10x3/uL (130-400); RBC 4.95 10x6/uL (4.20-6.10); RDW 13.3 % (11.5-14.5); WBC 11.4 10x3/uL (4.8-10.8)
--- NOTE | 2018-10-13 09:52 | NUR ---
PT IV INFILTRATED. NOTIFIED MIGUEL CONTRERAS THAT PT DOES NOT WANT TO ALLOW NURSE TO RESTART IV. MIGUEL CONTRERAS STATES SHE WILL CHANGE THE ANTIBIOTIC TO ORAL FORM.
--- NOTE | 2018-10-13 11:47 | MORECARE ---
CASE MANAGEMENT DISCHARGE SUMMARY PATIENT: CHATO DAMON UNIT: [id number] ADM DATE: 10/07/18 AGE: 73 : 43 SEX: M ROOM/BED: D.1212 AUTHOR: JUMANA,DOC PHYSICIAN: REFERRING PHYSICIAN: KM DE SOUZA MD DATE OF SERVICE: 10/13/18 Discharge Plan Patient Name: CHATO DAMON Facility: [facility]:[place] : 1945 Planned Disposition: Home Anticipated Discharge Date: 10/14/18 Discharge Date: Expected LOS: 7 Initial Reviewer: [email or web address] Initial Review Date: 10/07/2018 Generated: 10/13/18 12:47 pm DCP- Discharge Planning Updated by [email or web address]: Ramila Hastings on 10/12/18 5:[address] CM notified of patient requesting Home Health services upon discharge. [facility] signed for [facility]. CM contacted [facility] and faxed records explained that uncertain of when discharge will be. Will need home health order if physician approves. CM will continue to follow and assist as needed with discharge planning / needs. DCP- Discharge Planning Updated by [email or web address]: Ramila Hastings on 10/10/18 2:[address] Patient Name: CHATO DAMON Admission Status: ER Accout number: [id number] Admission Date: 10-07-2018 : 1945 Admission Diagnosis: Attending: KM GARCIA Current LOS: 3 Anticipated DC Date: Planned Disposition: Home Primary Insurance: MEDICARE A & B Discharge Planning Comments: CM met with patient to complete initial dc planning assessment. CM educated patient on the CM role and verbal consent given by patient to complete assessment. Patient lives at home with his where he is independent with his care. At discharge patient plans to return home and feels this is a safe discharge. CM discussed availability of home health, rehab services, and medical equipment. Patient has a CPAP and home o2 ( can't remember provider) Patient denied known discharge needs at this time. Patient states he will have transport him home. CM will continue to follow and will assist as needed with dc plans/needs. Opto Mechanical Engineer: Ramila Darling DCPIA - Discharge Planning Initial Assessment Updated by [email or web address]: Ramila Hastings on 10/10/18 3:31 pm * Is the patient Alert and Oriented? Yes * How many steps to enter\exit or inside your home? * PCP KAREN * Pharmacy [facility] [place] - [facility] * Preadmission Environment Home with Family * ADLs Independent * Other Equipment CPAP, Home * List name and contact numbers for known caregivers / representatives who currently or will assist patient after discharge: RESHMA DAMON - - [phone] * Verbal permission to speak to the caregivers and representatives has been obtained from the patient. Yes * Community resources currently utilized None * Additional services required to return to the preadmission environment? No * Can the patient safely return to the preadmission environment? Yes * Has this patient been hospitalized within the prior 30 days at any hospital? No Coverage Notice Reviewer: [id number] - Ramila Darling Notice Issued Date-Time: 11/11/2018 12:10 Notice Type: Patient Choice Letter Notice Delivered To: Patient Relationship to Patient: Equity Sales Assistant Name: Delivery Method: HAND - Hand Delivered Isabela Days: Prior Verbal Notification: Recipient Understood Notice: Yes Recipient Signature: Yes Med Rec Note Co-signed by Attending: Coverage Notice Comment: [facility] Reviewer: [id number] - Shawn Holguinwell Notice Issued Date-Time: 10/13/2018 10:55 Notice Type: IM Discharge Notice Notice Delivered To: Family Member Relationship to Patient: Spouse Equity Sales Assistant Name: RESHMA DAMON Delivery Method: HAND - Hand Delivered Isabela Days: Prior Verbal Notification: Recipient Understood Notice: Yes Recipient Signature: Yes Med Rec Note Co-signed by Attending: Coverage Notice Comment: Last DP export: 10/12/18 5:55 pm Patient Name: CHATO DAMON Page [id number] at 1147 All edits/amendments must be made on the electronic document DICTATION DATE: 10/13/18 1147 SR. MEDIA MANAGER: LEONIDAS 10/13/18 1147 RPT#: [id number] DC DATE: STATUS: ADM IN [facility] [address] [place] [address] END OF REPORT
--- NOTE | 2018-10-13 11:57 | MORECARE ---
CASE MANAGEMENT DISCHARGE SUMMARY PATIENT: CHATO DAMON UNIT: [id number] ADM DATE: 10/07/18 AGE: 73 : 43 SEX: M ROOM/BED: D.1212 AUTHOR: JUMANA,DOC PHYSICIAN: REFERRING PHYSICIAN: KM DE SOUZA MD DATE OF SERVICE: 10/13/18 Discharge Plan Patient Name: CHATO DAMON Facility: [facility]:[place] : 1945 Planned Disposition: Home Anticipated Discharge Date: 10/14/18 Discharge Date: Expected LOS: 7 Initial Reviewer: [email or web address] Initial Review Date: 10/07/2018 Generated: 10/13/18 12:56 pm DCP- Discharge Planning Updated by [email or web address]: Ramila Hastings on 10/12/18 5:[address] CM notified of patient requesting Home Health services upon discharge. [facility] signed for [facility] [place]. CM contacted [facility] and faxed records explained that uncertain of when discharge will be. Will need home health order if physician approves. CM will continue to follow and assist as needed with discharge planning / needs. DCP- Discharge Planning Updated by [email or web address]: Ramila Hastings on 10/10/18 2:[address] Patient Name: CHATO DAMON Admission Status: ER Accout number: [id number] Admission Date: 10-07-2018 : 1945 Admission Diagnosis: Attending: KM GARCIA Current LOS: 3 Anticipated DC Date: Planned Disposition: Home Primary Insurance: MEDICARE A & B Discharge Planning Comments: CM met with patient to complete initial dc planning assessment. CM educated patient on the CM role and verbal consent given by patient to complete assessment. Patient lives at home with his where he is independent with his care. At discharge patient plans to return home and feels this is a safe discharge. CM discussed availability of home health, rehab services, and medical equipment. Patient has a CPAP and home o2 ( can't remember provider) Patient denied known discharge needs at this time. Patient states he will have transport him home. CM will continue to follow and will assist as needed with dc plans/needs. Department [employer]: Ramila Darling DCPIA - Discharge Planning Initial Assessment Updated by [id number]: Ramila Hastings on 10/10/18 3:31 pm * Is the patient Alert and Oriented? Yes * How many steps to enter\exit or inside your home? * PCP KAREN * Pharmacy [facility] [place] - [facility] * Preadmission Environment Home with Family * ADLs Independent * Other Equipment CPAP, Home * List name and contact numbers for known caregivers / representatives who currently or will assist patient after discharge: RESHMA DAMON - - [phone] * Verbal permission to speak to the caregivers and representatives has been obtained from the patient. Yes * Community resources currently utilized None * Additional services required to return to the preadmission environment? No * Can the patient safely return to the preadmission environment? Yes * Has this patient been hospitalized within the prior 30 days at any hospital? No Coverage Notice Reviewer: [id number] - Ramila Hastings Notice Issued Date-Time: 11/11/2018 12:10 Notice Type: Patient Choice Letter Notice Delivered To: Patient Relationship to Patient: Form Setter Steel Pan Forms Name: Delivery Method: HAND - Hand Delivered Isabela Days: Prior Verbal Notification: Recipient Understood Notice: Yes Recipient Signature: Yes Med Rec Note Co-signed by Attending: Coverage Notice Comment: [facility] Reviewer: [id number] - Shwan Holguinwell Notice Issued Date-Time: 10/13/2018 10:55 Notice Type: IM Discharge Notice Notice Delivered To: Family Member Relationship to Patient: Spouse Form Setter Steel Pan Forms Name: RESHMA DAMON Delivery Method: HAND - Hand Delivered Isabela Days: Prior Verbal Notification: Recipient Understood Notice: Yes Recipient Signature: Yes Med Rec Note Co-signed by Attending: Coverage Notice Comment: Last DP export: 10/13/18 10:47 am Patient Name: CHATO DAMON Page 94150 at 1157 All edits/amendments must be made on the electronic document DICTATION DATE: 10/13/18 1156 TUBING ASSEMBLER: LEONIDAS 10/13/18 1156 RPT#: [id number] DC DATE: STATUS: ADM IN [facility] [address] [place] [address] END OF REPORT
--- NOTE | 2018-10-13 12:12 | MORECARE ---
CASE MANAGEMENT DISCHARGE SUMMARY PATIENT: CHATO DAMON GENE UNIT: [id number] ADM DATE: 10/07/18 AGE: 73 : 43 SEX: M ROOM/BED: D.1212 AUTHOR: JUMANA,DOC PHYSICIAN: REFERRING PHYSICIAN: KM DE SOUZA MD DATE OF SERVICE: 10/13/18 Discharge Plan Patient Name: CHATO DAMON Facility: [facility]:[place] : 1945 Planned Disposition: Home with Home Health Anticipated Discharge Date: 10/14/18 Discharge Date: Expected LOS: 7 Initial Reviewer: [email or web address] Initial Review Date: 10/07/2018 Generated: 10/13/18 1:12 pm Comments DCP- Discharge Planning Updated by [email or web address]: Shawn Mauro on 10/13/18 11:[address] Patient Name: CHATO DAMON Encounter No: [id number] : 1945 Primary Insurance: MEDICARE A & B Anticipated DC Date: 10-14-2018 Planned Disposition: Home with Home Health External Planned Provider: [facility] DCP follow-up note: CM MET WITH PT IN ROOM TO DISCUSS DISCHARGE NEEDS AND PLANNING. CM DISCUSSED AVAILABILITY OF HOME HEALTH, REHAB SERVICES AND MEDICAL EQUIPMENT. PT STILL PLANNING TO DISCHARGE HOME WITH [facility] AND [facility]. [facility] TO TRANSPORT HOME AT DISCHARGE. IMPORTANT MESSAGE FROM MEDICARE PROVIDED AND EXPLAINED. CM CALLED [facility], SPOKE TO ÁNGEL, , THEY DO HAVE REFERRAL AND WILL ADMIT FOR HOME HEALTH AFTER DISCHARGE. CM FAXED UPDATED TO [facility] AT [phone]. FOR DISCHARGE, NOTIFY [facility] AT [phone], FAX DISCHARGE INFORMATION TO [facility] AT [phone]. Shawn Mauro, CASE NAZANIN DCP- Discharge Planning Updated by [email or web address]: Ramila Hastings on 10/12/18 5:[address] CM notified of patient requesting Home Health services upon discharge. SEEMA signed for [facility] and [facility]. CM contacted [facility] and faxed records explained that uncertain of when discharge will be. Will need home health order if physician approves. CM will continue to follow and assist as needed with discharge planning / needs. DCP- Discharge Planning Updated by [email or web address]: Ramila Hastings on 10/10/18 2:[address] Patient Name: CHATO DAMON Admission Status: ER Accout number: [id number] Admission Date: 10-07-2018 : 1945 Admission Diagnosis: Attending: KM GARCIA Current LOS: 3 Anticipated DC Date: Planned Disposition: Home Primary Insurance: MEDICARE A & B Discharge Planning Comments: CM met with patient to complete initial dc planning assessment. CM educated patient on the CM role and verbal consent given by patient to complete assessment. Patient lives at home with his where he is independent with his care. At discharge patient plans to return home and feels this is a safe discharge. CM discussed availability of home health, rehab services, and medical equipment. Patient has a CPAP and home o2 ( can't remember provider) Patient denied known discharge needs at this time. Patient states he will have transport him home. CM will continue to follow and will assist as needed with dc plans/needs. Complex Human Resources Manager: Ramila Hastings DCPIA - Discharge Planning Initial Assessment Updated by [email or web address]: Ramila Hastings on 10/10/18 3:31 pm * Is the patient Alert and Oriented? Yes * How many steps to enter\exit or inside your home? * PCP KAREN * Pharmacy [facility] [place] - [facility] * Preadmission Environment Home with Family * ADLs Independent * Other Equipment CPAP, Home 02 /portable 02 * List name and contact numbers for known caregivers / representatives who currently or will assist patient after discharge: RESHMA DAMON - - [phone] * Verbal permission to speak to the caregivers and representatives has been obtained from the patient. Yes * Community resources currently utilized None * Additional services required to return to the preadmission environment? No * Can the patient safely return to the preadmission environment? Yes * Has this patient been hospitalized within the prior 30 days at any hospital? No External Providers External Provider: [facility] Next Contact Date: 10/13/2018 Service Request Date: Service Type: Resolution: Reviewer: Comments: Coverage Notice Reviewer: [id number] - Ramila Hastings Notice Issued Date-Time: 11/11/2018 12:10 Notice Type: Patient Choice Letter Notice Delivered To: Patient Relationship to Patient: Data Processing Specialist Name: Delivery Method: HAND - Hand Delivered Isabela Days: Prior Verbal Notification: Recipient Understood Notice: Yes Recipient Signature: Yes Med Rec Note Co-signed by Attending: Coverage Notice Comment: [facility] Reviewer: [id number] Sarah Mauro Notice Issued Date-Time: 10/13/2018 10:55 Notice Type: IM Discharge Notice Notice Delivered To: Family Member Relationship to Patient: Spouse Data Processing Specialist Name: RESHMA DAMON Delivery Method: HAND - Hand Delivered Isabela Days: Prior Verbal Notification: Recipient Understood Notice: Yes Recipient Signature: Yes Med Rec Note Co-signed by Attending: Coverage Notice Comment: Last DP export: 10/13/18 10:57 am Patient Name: CHATO DAMON Page [id number] at 1212 All edits/amendments must be made on the electronic document DICTATION DATE: 10/13/18 1212 BUTADIENE CONVERTER UTILITY OPERATOR: LEONIDAS 10/13/18 1212 RPT#: [id number] NM DATE: STATUS: ADM IN [facility] [address] [place] [address] END OF REPORT
[2018-10-13] MEDS ORDERED: PREDNISONE10 MG PO (14:38)
--- NOTE | 2018-10-13 15:09 | MORECARE ---
CASE MANAGEMENT DISCHARGE SUMMARY PATIENT: CHATO DAMON GENE UNIT: [id number] ADM DATE: 10/07/18 AGE: 73 : 43 SEX: M ROOM/BED: D.1212 AUTHOR: JUMANA,DOC PHYSICIAN: REFERRING PHYSICIAN: KM DE SOUZA MD DATE OF SERVICE: 10/13/18 Discharge Plan Patient Name: CHATO DAMON Facility: [facility]:[place] : 1945 Planned Disposition: Home with Home Health Anticipated Discharge Date: 10/14/18 Discharge Date: Expected LOS: 7 Initial Reviewer: [email or web address] Initial Review Date: 10/07/2018 Generated: 10/13/18 4:09 pm Comments DCP- Discharge Planning Updated by [email or web address]: Ramila Hastings on 10/13/18 2:[address] CM spoke with [facility] they will admit patient on Tuesday. CM notified unit nurse Aleena of [facility] services on Tuesday. CM also faxed d/c sum to [facility]. DCP- Discharge Planning Updated by [id number]: Shawn Mauro on 10/13/18 11:[address] Patient Name: CHATO DAMON Encounter No: [id number] : 1945 Primary Insurance: MEDICARE A & B Anticipated DC Date: 10-14-2018 Planned Disposition: Home with Home Health External Planned Provider: [facility] DCP follow-up note: CM MET WITH PT IN ROOM TO DISCUSS DISCHARGE NEEDS AND PLANNING. CM DISCUSSED AVAILABILITY OF HOME HEALTH, REHAB SERVICES AND MEDICAL EQUIPMENT. PT STILL PLANNING TO DISCHARGE HOME WITH [facility] AND [facility]. [facility] TO TRANSPORT HOME AT DISCHARGE. IMPORTANT MESSAGE FROM MEDICARE PROVIDED AND EXPLAINED. CM CALLED [facility], SPOKE TO ÁNGEL [phone], THEY DO HAVE REFERRAL AND WILL ADMIT FOR HOME HEALTH AFTER DISCHARGE. CM FAXED UPDATED TO [facility] AT [phone]. FOR DISCHARGE, NOTIFY [facility] AT [phone], FAX DISCHARGE INFORMATION TO [facility] AT [phone]. Shawn Mauro CASE MANAGEMENT DCP- Discharge Planning Updated by [id number]: Ramila Hastings on 10/12/18 5:[address] CM notified of patient requesting Home Health services upon discharge. SEEMA signed for [facility] and [facility]. CM contacted [facility] and faxed records explained that uncertain of when discharge will be. Will need home health order if physician approves. CM will continue to follow and assist as needed with discharge planning / needs. DCP- Discharge Planning Updated by [email or web address]: Ramila Darling on 10/10/18 2:[address] Patient Name: CHATO DAMON Admission Status: ER Accout number: [id number] Admission Date: 10-07-2018 : 1945 Admission Diagnosis: Attending: KM GARCIA Current LOS: 3 Anticipated DC Date: Planned Disposition: Home Primary Insurance: MEDICARE A & B Discharge Planning Comments: CM met with patient to complete initial dc planning assessment. CM educated patient on the CM role and verbal consent given by patient to complete assessment. Patient lives at home with his where he is independent with his care. At discharge patient plans to return home and feels this is a safe discharge. CM discussed availability of home health, rehab services, and medical equipment. Patient has a CPAP and home o2 ( can't remember provider) Patient denied known discharge needs at this time. Patient states he will have transport him home. CM will continue to follow and will assist as needed with dc plans/needs. Consultant Dietitian: Ramila Dunlapr DCPIA - Discharge Planning Initial Assessment Updated by [email or web address]: Ramila Darling on 10/10/18 3:31 pm * Is the patient Alert and Oriented? Yes * How many steps to enter\exit or inside your home? * PCP KAREN * Pharmacy [facility] - [facility] * Preadmission Environment Home with Family * ADLs Independent * Other Equipment CPAP, Home 02 /portable 02 * List name and contact numbers for known caregivers / representatives who currently or will assist patient after discharge: RESHMA DAMON - - [phone] * Verbal permission to speak to the caregivers and representatives has been obtained from the patient. Yes * Community resources currently utilized None * Additional services required to return to the preadmission environment? No * Can the patient safely return to the preadmission environment? Yes * Has this patient been hospitalized within the prior 30 days at any hospital? No External Providers External Provider: [facility] Next Contact Date: 10/13/2018 Service Request Date: Service Type: Resolution: Reviewer: Comments: Coverage Notice Reviewer: [id number] Sarah Hastings Notice Issued Date-Time: 11/11/2018 12:10 Notice Type: Patient Choice Letter Notice Delivered To: Patient Relationship to Patient: Outsole Cementer Name: Delivery Method: HAND - Hand Delivered Isabela Days: Prior Verbal Notification: Recipient Understood Notice: Yes Recipient Signature: Yes Med Rec Note Co-signed by Attending: Coverage Notice Comment: [facility] Reviewer: [id number] - Shawn Mauro Notice Issued Date-Time: 10/13/2018 10:55 Notice Type: IM Discharge Notice Notice Delivered To: Family Member Relationship to Patient: Spouse Outsole Cementer Name: RESHMA DAMON Delivery Method: HAND - Hand Delivered Isabela Days: Prior Verbal Notification: Recipient Understood Notice: Yes Recipient Signature: Yes Med Rec Note Co-signed by Attending: Coverage Notice Comment: Last DP export: 10/13/18 11:12 am Patient Name: CHATO DAMON Page 44100 at 1509 All edits/amendments must be made on the electronic document DICTATION DATE: 10/13/18 1509 LAP HAND TOOL: LEONIDAS 10/13/18 1509 RPT#: [id number] DC DATE: STATUS: ADM IN [facility] [address] [place] [address] END OF REPORT
--- NOTE | 2018-10-13 15:18 | NUR ---
Nutrition Follow-up: Family reports pt is eating very well. Diet: Diabetic; Glucerna with meals PO intake: 100% Last BM: 10/13 Wt: 266# Labs reviewed Meds reviewed Rec continue current diet as tolerated. [place] food preferences within diet restrictions. RD following.
--- NOTE | 2018-10-13 15:40 | MORECARE ---
CASE MANAGEMENT DISCHARGE SUMMARY PATIENT: CHATO DAMON GENE UNIT: [id number] ADM DATE: 10/07/18 AGE: 73 : 43 SEX: M ROOM/BED: D.1212 AUTHOR: JUMANA,DOC PHYSICIAN: REFERRING PHYSICIAN: KM DE SOUZA MD DATE OF SERVICE: 10/13/18 Discharge Plan Patient Name: CHATO DAMON Facility: [facility]:[place] : 1945 Planned Disposition: Home with Home Health Anticipated Discharge Date: 10/13/18 Discharge Date: Expected LOS: 6 Initial Reviewer: [email or web address] Initial Review Date: 10/07/2018 Generated: 10/13/18 4:39 pm Comments DCP- Discharge Planning Updated by [email or web address]: Ramila Hastings on 10/13/18 2:[address] CM spoke with [facility] they will admit patient on Tuesday. CM notified unit nurse Aleena of [facility] services on Tuesday. CM also faxed d/c sum to [facility]. DCP- Discharge Planning Updated by [email or web address]: Shawn Mauro on 10/13/18 11:[address] Patient Name: CHATO DAMON Encounter No: [id number] : 1945 Primary Insurance: MEDICARE A & B Anticipated DC Date: 10-14-2018 Planned Disposition: Home with Home Health External Planned Provider: [facility] DCP follow-up note: CM MET WITH PT IN ROOM TO DISCUSS DISCHARGE NEEDS AND PLANNING. CM DISCUSSED AVAILABILITY OF HOME HEALTH, REHAB SERVICES AND MEDICAL EQUIPMENT. PT STILL PLANNING TO DISCHARGE HOME WITH [facility] AND [facility]. [facility] TO TRANSPORT HOME AT DISCHARGE. IMPORTANT MESSAGE FROM MEDICARE PROVIDED AND EXPLAINED. CM CALLED [facility], SPOKE TO ÁNGEL [phone], THEY DO HAVE REFERRAL AND WILL ADMIT FOR HOME HEALTH AFTER DISCHARGE. CM FAXED UPDATED TO [facility] AT [phone]. FOR DISCHARGE, NOTIFY [facility] AT [phone], FAX DISCHARGE INFORMATION TO [facility] AT [phone]. Shawn Mauro CASE MANAGEMENT DCP- Discharge Planning Updated by [email or web address]: Ramila Hastings on 10/12/18 5:[address] CM notified of patient requesting Home Health services upon discharge. SEEMA signed for [facility] and [facility]. CM contacted [facility] and faxed records explained that uncertain of when discharge will be. Will need home health order if physician approves. CM will continue to follow and assist as needed with discharge planning / needs. DCP- Discharge Planning Updated by [id number]: Ramila Hastings on 10/10/18 2:[address] Patient Name: CHATO DAMON Admission Status: ER Accout number: [id number] Admission Date: 10-07-2018 : 1945 Admission Diagnosis: Attending: KM GARCIA Current LOS: 3 Anticipated DC Date: Planned Disposition: Home Primary Insurance: MEDICARE A & B Discharge Planning Comments: CM met with patient to complete initial dc planning assessment. CM educated patient on the CM role and verbal consent given by patient to complete assessment. Patient lives at home with his where he is independent with his care. At discharge patient plans to return home and feels this is a safe discharge. CM discussed availability of home health, rehab services, and medical equipment. Patient has a CPAP and home o2 ( can't remember provider) Patient denied known discharge needs at this time. Patient states he will have transport him home. CM will continue to follow and will assist as needed with dc plans/needs. [employer]: Ramila Hastings DCPIA - Discharge Planning Initial Assessment Updated by [email or web address]: Ramila Hastings on 10/10/18 3:31 pm * Is the patient Alert and Oriented? Yes * How many steps to enter\exit or inside your home? * PCP KAREN * Pharmacy [facility] - 70w * Preadmission Environment Home with Family * ADLs Independent * Other Equipment CPAP, Home 02 /portable 02 * List name and contact numbers for known caregivers / representatives who currently or will assist patient after discharge: RESHMA DAMON - - [phone] * Verbal permission to speak to the caregivers and representatives has been obtained from the patient. Yes * Community resources currently utilized None * Additional services required to return to the preadmission environment? No * Can the patient safely return to the preadmission environment? Yes * Has this patient been hospitalized within the prior 30 days at any hospital? No Coverage Notice Reviewer: [id number] Sarah Hastings Notice Issued Date-Time: 11/11/2018 12:10 Notice Type: Patient Choice Letter Notice Delivered To: Patient Relationship to Patient: Dirt Supervisor Name: Delivery Method: HAND - Hand Delivered Isabela Days: Prior Verbal Notification: Recipient Understood Notice: Yes Recipient Signature: Yes Med Rec Note Co-signed by Attending: Coverage Notice Comment: [facility] Reviewer: [id number] - Shawn Mauro Notice Issued Date-Time: 10/13/2018 10:55 Notice Type: IM Discharge Notice Notice Delivered To: Family Member Relationship to Patient: Spouse Dirt Supervisor Name: RESHMA DAMON Delivery Method: HAND - Hand Delivered Isabela Days: Prior Verbal Notification: Recipient Understood Notice: Yes Recipient Signature: Yes Med Rec Note Co-signed by Attending: Coverage Notice Comment: Last DP export: 10/13/18 2:09 pm Patient Name: CHATO DAMON Page 39624 at 1540 All edits/amendments must be made on the electronic document DICTATION DATE: 10/13/18 1539 EDUCATION ASSISTANT: LEONIDAS 10/13/18 1539 RPT#: [id number] DC DATE: STATUS: ADM IN [facility] [address] [place] [address] END OF REPORT
--- NOTE | 2018-10-13 16:58 | NUR ---
DISCHARGE INSTRUCTIONS REVIEWED WITH PT AND ALL QUESTIONS ANSWERED. ASSISTED PT TO FRONT OF HOSPITAL VIA WHEELCHAIR WHERE HE LEFT WITH HIS
--- NOTE | 2018-10-16 13:55 | CN ---
PATIENT NAME:CHATO DAMON MEDICAL RECORD: [id number] : [birth year] LOCATION:D.Ekta D.1212 ADMIT DATE: 10/07/18 ACCOUNT: [id number] CONSULTING PHYSICIAN: ADELINE LINDSAY MD REFERRING PHYSICIAN: KM DE SOUZA MD DATE OF CONSULTATION: 10/08/2018 HISTORY OF PRESENT ILLNESS: A 72-year-old gentleman with known history of coronary artery disease, status post intervention with Dr. Hong. He has a history of sick sinus syndrome, status post pacemaker placement; end-stage pulmonary disease, followed by pulmonary; with severely decreased EF, admitted with hypercapnia and acidotic, noted to have elevated BNP. We are asked to see him concerning his cardiovascular status. PAST MEDICAL HISTORY: Includes; 1. History of hypertension. 2. Hyperlipidemia. 3. Severe obstructive pulmonary disease. 4. Diabetes mellitus. 5. Sick sinus syndrome. ALLERGIES: None known. MEDICATIONS: Typically, include clopidogrel 75 mg p.o. daily, diltiazem 180 b.i.d., propafenone 225 b.i.d., pravastatin 80 mg p.o. at bedtime, lisinopril 20 daily, aspirin 81 daily, Lexapro 10 daily, Lasix 40 daily, Reglan 5 a.c. and at bedtime, and insulin per scale. SOCIAL HISTORY: Not smoked for several years. Nondrinker. No set exercise program. He does need some assistance with ADLs. REVIEW OF SYSTEMS: The patient reports easy bruising but reports no swollen glands. The patient reports no fever, no night sweats, no significant weight gain, no significant weight loss. No significant exercise tolerance. The patient reports no dry eyes, no irritation, no vision change. Patient reports no difficulty hearing and no ear pain. Patient reports no frequent nose bleeds or nose and sinus problems. Patient reports on arm pain on exertion. No shortness of breath while lying down. No history of heart murmur. Patient reports no cough, no wheezing or coughing up blood. Patient reports no abdominal pain, no vomiting. Normal appetite. No diarrhea and not vomiting blood. No nausea and no constipation. Patient reports no incontinence. No difficulty urinating. No hematuria. No increased frequency. Patient reports no muscle aches. No weakness, no arthralgias, no back pain. No swelling of the extremities. Patient reports no abnormal mole, no jaundice, no rashes. Reports no loss of consciousness. No weakness and no numbness. No seizures, dizziness, or headaches. The patient reports no depression, no sleep disturbance, feeling safe in a relationship and no alcohol abuse. Patient reports on fatigue. Reports no runny nose or sinus pressure. No itching, no hives, and no frequent sneezing. PHYSICAL EXAMINATION: GENERAL: Currently, on BiPAP. Mild distress. VITAL SIGNS: Blood pressure 143/65. Pulse 73 and regular. HEENT: Normocephalic and atraumatic. NECK: No bruits noted. CONSULT REPORT [id number] DAMONCHATOAZ RIOS HEART: Regular. II/ systolic ejection murmur. LUNGS: Fair air excursion. ABDOMEN: Soft and nontender. EXTREMITIES: Pulses 2+. No edema. IMPRESSION: Respiratory failure and severe COPD. EF is mildly decreased at 40% to 45%. Currently maintaining sinus rhythm; although given underlying respiratory status, could certainly revert to atrial fibrillation. Continue to monitor this closely. If creatinine has improved, we will consider addition of ARB and/or Aldactone to current medical regime. TRANSINT:[id number] Voice Confirmation ID: [id number] DOCUMENT ID: [id number] ADELINE LINDSAY MD at 1352 CC: [id number] DICTATION DATE: 10/08/18 1201 VALVE FITTER: 10/08/18 1352 DIS IN 10/13/18 [facility] [address] [place] [id number]
--- NOTE | 2018-10-16 13:55 | EC ---
PATIENT:CHATO DAMON DATE OF SERVICE: 10/07/18 SEX: M MEDICAL RECORD: [id number] DATE OF : [birth year] LOCATION:D.M3 D.121 AGE OF PATIENT: 73 ADMISSION DATE: 10/07/18 REFERRING PHYSICIAN: INTERPRETING PHYSICIAN: ADELINE LINDSAY MD ECHOCARDIOGRAM REPORT ECHO CHARGES 4 ECHO COMPLETE Date: 10/07/18 CLINICAL DIAGNOSIS: CHF ECHOCARDIOGRAPHIC MEASUREMENTS (adult normal given) AC root (d.<3.7cm) 3.2 cm LV Septum d (<1.2 cm> 1.5 cm Valve Excursion 1.5 cm LV Septum (systole) 1.6 cm Left Atria (s.<4.0cm> 3.1 cm LVPW d(<1.2cm) 1.1 cm RV (d.<2.3cm) 3.0 cm LVPW (sytole) 1.2 cm LV diastole(<5.6CM) 5.6 cm MV E-F(>70mm/sec) cm LV systole 4.6 cm LVOT Diameter 1.8 cm MV exc.(>10mm) cm Est.ejection fraction (50-75%) % DOPPLER: LVIT cm/sec A 75 cm/sec E 50 cm/sec LA cm/sec RVSP 15.7 mmHg LVOT 88 cm/sec AOP1/2T m/s Asc. Ao 136 cm/sec RVOT 78 cm/sec RA cm/sec PA 71 cm/sec AV Gradient Peak 7.4 mmHg AV Mean 4.1 mmHg AV Area 2.3 cm MV Gradient Peak 4.2 mmHg MV Mean 2.3 mmHg MV Area cm COMMENTS: Cleaning Maid: Chetan RENEE Activated Sludge Attendant: 3 Dr. Santana TAPE# PACS Pericardial Effusion N DATE OF SERVICE: Adequate 2D, color flow, spectral Doppler, and M-mode. LVH is present. LV internal dimension is normal. LV is mildly globally hypokinetic with reduced EF, estimated EF 40% to 45%. Aortic valve is sclerosed without evidence of stenosis by Doppler interrogation. Left atrium is normal. Mitral valve shows no prolapse. Trace MR. Right-sided chambers are grossly normal. Mild TR. ECHOCARDIOGRAM REPORT [id number] CHATO DAMON TRANSINT:[id number] Voice Confirmation ID: [id number] DOCUMENT ID: [id number] ADELINE LINDSAY MD at 1355 CC: [id number] DICTATION DATE: 10/07/18 1528 METALLOGRAPHIC TECHNICIAN: 10/08/18 0022 DIS IN 10/13/18 [place] [id number] [place] [id number]
== END 2018-10-13 16:59 | disposition home health service (06) | DRG 193 ==
LOC: D.ER 08:36 → D.ICU 11:11 → D.M3 10-12 12:40
PROVIDERS: Emergency Medicine; Family Medicine; Internal Medicine Nephrology; ADMIT Family Medicine; ATTEND Family Medicine
DX: J18.9 Pneumonia, unspecified organism (principal); J96.22 Acute and chronic respiratory failure with hypercapnia; J96.21 Acute and chronic respiratory failure with hypoxia; I50.23 Acute on chronic systolic (congestive) heart failure; J44.1 Chronic obstructive pulmonary disease with (acute) exacerbation; N17.9 Acute kidney failure, unspecified; F17.203 Nicotine dependence unspecified, with withdrawal; E87.2 Acidosis; J44.0 Chronic obstructive pulmonary disease with (acute) lower respiratory infection; E11.22 Type 2 diabetes mellitus with diabetic chronic kidney disease; N18.3 Chronic kidney disease, stage 3 (moderate); K21.9 Gastro-esophageal reflux disease without esophagitis; G47.33 Obstructive sleep apnea (adult) (pediatric); E78.5 Hyperlipidemia, unspecified; Z95.0 Presence of cardiac pacemaker

== ENCOUNTER → 2019-01-03 10:16 | Outpatient (CLI) | payer MEDICARE, OTHER ==
[2018-10-09 09:31] VITALS: BMI 37.0
[~2019-01-03 10:16] MED LIST changes: +CARDIZEM CD180 MG PO; +LEXAPRO10 MG PO; +NOVOLIN 70/30 110 ML SC; +PREDNISONE10 MG PO
== END | disposition home or self-care (01) ==
LOC: D.US 08:30
PROVIDERS: ATTEND Internal Medicine Cardiovascular Disease
DX: I71.4 Abdominal aortic aneurysm, without rupture (principal); I65.23 Occlusion and stenosis of bilateral carotid arteries

== ENCOUNTER → 2019-01-08 12:01 | Outpatient (CLI) | payer MEDICARE, OTHER ==
[2018-10-09 09:31] VITALS: BMI 37.0
== END | disposition home or self-care (01) ==
LOC: D.CT 12:01
PROVIDERS: ATTEND Internal Medicine Cardiovascular Disease
DX: I71.4 Abdominal aortic aneurysm, without rupture (principal)

== ENCOUNTER → 2019-01-10 12:22 | Outpatient (CLI) | payer MEDICARE, OTHER ==
[2018-10-09 09:31] VITALS: BMI 37.0
== END | disposition home or self-care (01) ==
LOC: D.CT 12:22
PROVIDERS: ATTEND Internal Medicine Cardiovascular Disease
DX: I65.23 Occlusion and stenosis of bilateral carotid arteries (principal)

== ENCOUNTER 2019-02-12 04:38 | Inpatient (IN) | payer MEDICARE, OTHER ==
[~2019-02-12] VITALS: Ht 182.9 cm; Wt 120.2 kg
[2019-02-12] MEDS ORDERED: IPRAT-ALBUT 0.5-3 ML UPD (04:45)
[2019-02-12] MEDS ORDERED: NOVOLIN 70/30 110 ML SC (04:45)
[2019-02-12 05:24] LABS: APPEARANCE HAZY (CLEAR); BILIRUBIN NEGATIVE (NEGATIVE); COLOR YELLOW (YELLOW); GLUCOSE NEGATIVE (NEGATIVE); KETONE NEGATIVE (NEGATIVE); NITRITE NEGATIVE (NEGATIVE); PROTEIN 3+ mg/dL (NEGATIVE); UROBILINOGEN NORMAL (NORMAL)
[2019-02-12 05:25] LABS: AMORPHOUS SEDIMENT <1+ /lpf (NONE SEEN); BACTERIA FEW /hpf (NEGATIVE); EPITHELIAL CELLS 0-5 /hpf (0-5); RED CELLS - URINE 0-5 /hpf (0-5); WHITE CELLS - URINE 0-5 /hpf (NEGATIVE)
[2019-02-12 05:30] VITALS: BP 216/78
[2019-02-12 05:30] LABS: BASOPHILS 0.1 % (0-2); EOSINOPHILS 0.1 % (0-7); HEMATOCRIT 41.9 % (42.0-54.0); HEMOGLOBIN 13.1 g/dL (13.5-17.5); IMMATURE GRANULOCYTES 0.3 % (0-5); LYMPHOCYTES 9.2 % (15-50); MCHC 31.3 g/dL (31.0-37.0); MCV 92.7 fL (80.0-100.0); MEAN PLATELET VOLUME 10.5 fL (7.4-10.4); NEUTROPHILS 84.3 % (40-80); RBC 4.52 10x6/uL (4.20-6.10); RDW 13.4 % (11.5-14.5); WBC 14.6 10x3/uL (4.8-10.8)
[2019-02-12 05:33] LABS: ANION GAP 8.8 mmol/L (8-16); CALCIUM 8.8 mg/dL (8.5-10.1); CARBON DIOXIDE 33.1 mmol/L (21.0-32.0); CREATININE - SERUM 1.5 mg/dL (0.6-1.3); POTASSIUM - SERUM 4.9 mmol/L (3.5-5.1)
[2019-02-12 05:35] LABS: PLATELET COUNT 174 10x3/uL (130-400)
[2019-02-12 05:47] LABS: BILIRUBIN - TOTAL 0.4 mg/dL (0.2-1.3); MAGNESIUM - SERUM 2.5 mg/dL (1.8-2.4); PROTEIN - SERUM 7.8 g/dL (6.4-8.2); TROPONIN-I 0.048 ng/mL (0.000-0.060)
--- NOTE | 2019-02-12 05:47 | NUR ---
RT AT BEDSIDE SETTING UP BIPAP. PT RESTING ON BED. PT [facility] AT BEDSIDE.
--- NOTE | 2019-02-12 06:54 | NUR ---
ROCEPHIN INFUSION COMPLETE.
[2019-02-12 08:18] VITALS: BP 184/88; BMI 36.0
[2019-02-12 08:38] VITALS: BP 184/88
--- NOTE | 2019-02-12 11:06 | NUR ---
PATIENT BLADDER SCAN SHOWED 416 ML. HAS PREVIOUSLY TOLD ME THAT PATIENT HAS HYPOSPADIAS. MCMAHON PLACED WITH NO COMPLICATIONS. Evelyn SANDOVAL RN ASSISTED. STERILE TECHNIQUE MAINTAINED. 10 ML OF FLUID TO FILL THE BALLOON. 700 ML URINE OUTPUT VIA BAG MEASUREMENTS. CL IN REACH. PATIENT STILL NOT RESPONSIVE. BED ALARM ON.
--- NOTE | 2019-02-12 11:14 | NUR ---
RESHMA BACK IN ROOM.
[2019-02-12 12:48] VITALS: BP 155/51
[2019-02-12 13:22] VITALS: Ht 182.9 cm; Wt 120.2 kg
[2019-02-12 16:43] VITALS: BP 171/72
[2019-02-12 20:20] VITALS: BP 144/60
[2019-02-13 00:40] VITALS: BP 154/75
[2019-02-13 05:41] VITALS: BP 142/84
[2019-02-13 07:12] LABS: BASOPHILS 0.1 % (0-2); EOSINOPHILS 0 % (0-7); HEMATOCRIT 36.9 % (42.0-54.0); HEMOGLOBIN 11.2 g/dL (13.5-17.5); IMMATURE GRANULOCYTES 0.5 % (0-5); LYMPHOCYTES 8.8 % (15-50); MCH 28.1 pg (26.0-34.0); MCHC 30.4 g/dL (31.0-37.0); MCV 92.5 fL (80.0-100.0); MEAN PLATELET VOLUME 10.4 fL (7.4-10.4); MONOCYTES 8.9 % (2-11); NEUTROPHILS 81.7 % (40-80); PLATELET COUNT 171 10x3/uL (130-400); RBC 3.99 10x6/uL (4.20-6.10); RDW 13.6 % (11.5-14.5)
[2019-02-13 07:28] LABS: ANION GAP 10.4 mmol/L (8-16); CALCIUM 8.7 mg/dL (8.5-10.1); CARBON DIOXIDE 35.7 mmol/L (21.0-32.0); CREATININE - SERUM 1.8 mg/dL (0.6-1.3)
[2019-02-13 07:29] LABS: POTASSIUM - SERUM 4.1 mmol/L (3.5-5.1)
--- NOTE | 2019-02-13 07:37 | NUR ---
I have reviewed this patient and I concur with the Shift Assessment completed by the Licensed Practical Nurse today this shift.
[2019-02-13 08:21] VITALS: BP 189/69
[2019-02-13 12:17] VITALS: BP 150/59
[2019-02-13 16:34] VITALS: BP 143/51
[2019-02-13 21:15] VITALS: BP 140/69
[2019-02-14 01:04] VITALS: BP 140/57
--- NOTE | 2019-02-14 02:15 | NUR ---
REC'D. CHGE OF SHIFT WALKING ROUNDS AT BEDSIDE.DR LOPEZ HERE.PATIENT ASLEEP EYES CLOSED RESP. DEEP AND EVEN.BIPAP ON ORDERED.MCMAHON PATENT DRAINING CELESTINA COLORED URINE. WILL CONTINUE TO MONITOR FOR ANY CHGES IN RESP. STATUS AND FOLLOW CURRENT PLAN OF CARE.
[2019-02-14 05:50] VITALS: BP 139/74
[2019-02-14 06:39] LABS: ANION GAP 6.6 mmol/L (8-16); CARBON DIOXIDE 37.5 mmol/L (21.0-32.0); CREATININE - SERUM 1.6 mg/dL (0.6-1.3); POTASSIUM - SERUM 4.1 mmol/L (3.5-5.1)
[2019-02-14 07:01] LABS: BASOPHILS 0 % (0-2); EOSINOPHILS 0.1 % (0-7); IMMATURE GRANULOCYTES 0.5 % (0-5); LYMPHOCYTES 9.9 % (15-50); MCH 28.1 pg (26.0-34.0); MCHC 30.6 g/dL (31.0-37.0); MCV 92.1 fL (80.0-100.0); MEAN PLATELET VOLUME 10.7 fL (7.4-10.4); MONOCYTES 9.3 % (2-11); NEUTROPHILS 80.2 % (40-80); PLATELET COUNT 158 10x3/uL (130-400); RBC 3.91 10x6/uL (4.20-6.10); RDW 13.4 % (11.5-14.5); WBC 10.9 10x3/uL (4.8-10.8)
--- NOTE | 2019-02-14 08:00 | NUR ---
ASSESSMENT PER FLOW SHEET. PT IS WITHOUT DISTRESS.BIPAP ON AND WORKING.CALL LIGHT IN REACH.
[2019-02-14 08:36] VITALS: BP 124/66
[2019-02-14 12:32] VITALS: BP 158/78
--- NOTE | 2019-02-14 14:46 | MORECARE ---
CASE MANAGEMENT DISCHARGE SUMMARY PATIENT: CHATO DRIVER GENE UNIT: [id number] ADM DATE: 02/12/19 AGE: 73 : 43 SEX: M ROOM/BED: D.2239 AUTHOR: JUMANA,DOC PHYSICIAN: REFERRING PHYSICIAN: ALVA LOPEZ MD DATE OF SERVICE: 02/14/19 Discharge Plan Patient Name: CHATO DRIVER Facility: [facility]:[place] : 1945 Planned Disposition: Home Anticipated Discharge Date: 02/14/19 Discharge Date: Expected LOS: 2 Initial Reviewer: [email or web address] Initial Review Date: 02/14/2019 Generated: 02/14/19 3:45 pm DCPIA - Discharge Planning Initial Assessment Updated by [id number]: Katelynn Khalil on 02/14/19 2:43 pm * Is the patient Alert and Oriented? No * How many steps to enter\exit or inside your home? 2/0 * PCP Dr. Mcduffie * Pharmacy [facility] on [address] * Preadmission Environment Home with Family * ADLs Partial Dependent * Partial ADLs (Assistance needed) Ambulation Bathing Medication Management Toileting Transfers * Equipment CPAP Nebulizer Other Oxygen Shower Chair * Other Equipment Portable oxygen Pulse oximeter Has a built in shower with seat * List name and contact numbers for known caregivers / representatives who currently or will assist patient after discharge: Lucas Driver - - [phone] * Verbal permission to speak to the caregivers and representatives has been obtained from the patient. Yes * Community resources currently utilized None * Additional services required to return to the preadmission environment? Yes * Can the patient safely return to the preadmission environment? Yes * Has this patient been hospitalized within the prior 30 days at any hospital? No Coverage Notice Reviewer: [id number] - Katelynn Khalil Notice Issued Date-Time: 02/14/2019 14:38 Notice Type: Patient Choice Letter Notice Delivered To: Family Member Relationship to Patient: Spouse Bi Tri Operator Name: Lucas Delivery Method: HAND - Hand Delivered Isabela Days: Prior Verbal Notification: Recipient Understood Notice: Yes Recipient Signature: Yes Med Rec Note Co-signed by Attending: Coverage Notice Comment: [facility] for [place] Patient Name: CHATO DRIVER Page 40415 at 1446 All edits/amendments must be made on the electronic document DICTATION DATE: 02/14/191444 DRILLING MACHINE OPERATOR: LEONIDAS 02/14/191444 RPT#: [id number] DC DATE: STATUS: ADM IN [facility] [address] [place] [address] END OF REPORT
--- NOTE | 2019-02-14 14:54 | MORECARE ---
CASE MANAGEMENT DISCHARGE SUMMARY PATIENT: CHATO DRIVER GENE UNIT: [id number] ADM DATE: 02/12/19 AGE: 73 : 43 SEX: M ROOM/BED: D.2239 AUTHOR: CATHERINE DENNEY PHYSICIAN: REFERRING PHYSICIAN: ALVA LOPEZ MD DATE OF SERVICE: 02/14/19 Discharge Plan Patient Name: CHATO DRIVER Facility: [facility]:[place] : 1945 Planned Disposition: Home Anticipated Discharge Date: 02/14/19 Discharge Date: Expected LOS: 2 Initial Reviewer: [email or web address] Initial Review Date: 02/14/2019 Generated: 02/14/19 3:54 pm DCP- Discharge Planning Updated by [email or web address]: Katelynn Khalil on 02/14/19 1:[address] Patient Name: CHATO DRIVER Admission Status: ER Accout number: [id number] Admission Date: 02-12-2019 : 1945 Admission Diagnosis: Attending: ALVA LOPEZ Current LOS: 2 Anticipated DC Date: 02-14-2019 Planned Disposition: Home Primary Insurance: MEDICARE A & B Discharge Planning Comments: CM met with in the room to discuss discharge planning/needs. Patient is sleeping during the assessment. She states that he lives with her in a one story home. She states that "she takes care of him." She states that they have had home health in the past with [facility] and would like that resumed if needed. I discussed availability of inpatient rehab, SNF, Hospice, home health, DME. She states she has been considering hospice. I gave her a list of Hospice agencies. She states "I really don't know what all we may need, but he will want to go home." States he will refuse rehab. I also gave her information on private care, she states she has looked into it and it is unaffordable. She does state he may need a walker with a seat at discharge. I will need a doctors order for this and will order from [facility] as requested. CM will continue to follow and assist with discharge planning/needs. Stock Sheets Cleaner Inspector: Katelynn Khalil DCPIA - Discharge Planning Initial Assessment Updated by [id number]: Katelynn Khalil on 02/14/19 2:43 pm * Is the patient Alert and Oriented? No * How many steps to enter\\exit or inside your home? 2/0 * PCP Dr. Mcduffie * Pharmacy [facility] on [address] * Preadmission Environment Home with Family * ADLs Partial Dependent * Partial ADLs (Assistance needed) Ambulation Bathing Medication Management Toileting Transfers * Equipment CPAP Nebulizer Other Oxygen Shower Chair * Other Equipment Portable oxygen Pulse oximeter Has a built in shower with seat * List name and contact numbers for known caregivers / representatives who currently or will assist patient after discharge: Lucas Driver - - [phone] * Verbal permission to speak to the caregivers and representatives has been obtained from the patient. Yes * Community resources currently utilized None * Additional services required to return to the preadmission environment? Yes * Can the patient safely return to the preadmission environment? Yes * Has this patient been hospitalized within the prior 30 days at any hospital? No Coverage Notice Reviewer: [id number] - Katelynn Remi Notice Issued Date-Time: 02/14/2019 14:38 Notice Type: Patient Choice Letter Notice Delivered To: Family Member Relationship to Patient: Spouse [employer] Ren[employer] Chef And Restaurant Owner Name: Lucas Delivery Method: HAND - Hand Delivered Isabela Days: Prior Verbal Notification: Recipient Understood Notice: Yes Recipient Signature: Yes Med Rec Note Co-signed by Attending: Coverage Notice Comment: [facility] for [facility] Last DP export: 02/14/19 1:46 p Patient Name: CHATO DRIVER Page 46815 at 1454 All edits/amendments must be made on the electronic document DICTATION DATE: 02/14/19 9676 PLASTIC SHEETING CUTTER: LEONIDAS 02/14/19 1454 RPT#: [id number] DC DATE: STATUS: ADM IN [facility] [address] [place] [address] END OF REPORT
--- NOTE | 2019-02-14 14:57 | NUR ---
NUTRITION F/U PT TOLERAING AHA DIET WITH 100% INTAKE RECENT MEALS. PT DID REQUIRE SOME ASSIST WITH MEAL SETUP. WILL CONTINUE TO PROVIDE DIET MONITOR PO INTAKE. RD FOLLOWING
[2019-02-14 16:28] VITALS: BP 163/77
--- NOTE | 2019-02-14 18:48 | NUR ---
ASSISTED WITH DINNER TRAY SETUP. PT IS ON 9 LITERS PER NASAL CANULA. HE IS WITHOUT DISTRESS.CONT PLAN OF CARE
--- NOTE | 2019-02-14 19:53 | NUR ---
I have reviewed this patient and I concur with the Shift Assessment completed by the Licensed Practical Nurse today this shift.
[2019-02-14 20:00] VITALS: BP 131/54
--- NOTE | 2019-02-14 20:58 | NUR ---
REC'D CHGE OF SHIFT WALKING ROUNDS.LYING ON LEFT SIDE RESP. DEEP EVEN EYES CLOSED BIPAP ON 60%. NO RESP. DISTRESS OBSERVED. WILL CONTINUE TO MONITOR FOR ANY CHGES RESP. STATUS AND FOLLOW CURRENT PLAN OF CARE.
[2019-02-15 04:00] VITALS: BP 144/55
--- NOTE | 2019-02-15 05:28 | NUR ---
0000) CONTINUES TO SLEEP BIPAP REMAINS ON NO RESP DIFFICULTY OBSERVED
--- NOTE | 2019-02-15 05:30 | NUR ---
0445) AWAKE EXPLAINED CHECKING SITE FOR BLOOD RETURN BEFORE HANGING ANTIBIOTIC NS IS SALT WATER WILL STING LITTLE BIT WILL PUSH SLOWLY. YELLED OUT GET SOMEBODY IN HERE THAT KNOWS WHAT THEY'RE DOING.THAT STUFF IS NOT SUPPOSE TO BURN.EXCELLENT BLOOD RETURN PRIOR TO FLUSHING.STATES I NEED SOMEBODY THAT KNOWS WHAT THEY'RE DOING ASKED X3 DO YOU WANT ME TO INFUSE ANTIBIOTIC OR NOT EXPLAINED WON'T GIVE IT IF YOU DON'T WANT ME TO HANG IT. BEGAN TO LEAVE RM. STATES HANG IT.IV ROCEPHIN INFUSING STATES ITS BURNING RATE LOWERED.RETURNED TO DESK ER ON PHONE PATIENT CALLED ER FOR SOMEONE TO HELP HIM REPORTED TO CHARGE NURSE MARLENE MILLER
--- NOTE | 2019-02-15 06:00 | NUR ---
I have reviewed this patient and I concur with the Shift Assessment completed by the Licensed Practical Nurse today this shift.
--- NOTE | 2019-02-15 06:01 | NUR ---
CALL TALKED TO SPOUSE IN REGUARDS TO [facility] IN BEHAVIOR. TRANSFERED TO ROOM FOR SPOUSE TO REASSURE THAT DR IS WHO ORDERED BLOOD WORK UPDRAFT TX. ETC.IN ORDER TO PROGRESS FORWARD TO GET TO GO HOME WILL CONTINUE TO MONITOR FOR ANY FURTHER CHGES AND FOLLOW CURRENT PLAN OF CARE
--- NOTE | 2019-02-15 06:13 | NUR ---
STATES DURING CALL BACK HE HUNG UP ON ME TWICE WHEN TRIED TO TALK TO HIM
[2019-02-15 06:39] LABS: ANION GAP 9.6 mmol/L (8-16); CALCIUM 8.8 mg/dL (8.5-10.1); CREATININE - SERUM 1.6 mg/dL (0.6-1.3); POTASSIUM - SERUM 4.6 mmol/L (3.5-5.1)
[2019-02-15 07:20] LABS: HEMATOCRIT 37.6 % (42.0-54.0); HEMOGLOBIN 11.8 g/dL (13.5-17.5); LYMPHOCYTES 6.4 % (15-50); MCH 28.4 pg (26.0-34.0); MCHC 31.4 g/dL (31.0-37.0); MCV 90.4 fL (80.0-100.0); MEAN PLATELET VOLUME 10.4 fL (7.4-10.4); NEUTROPHILS 87.6 % (40-80); PLATELET COUNT 170 10x3/uL (130-400); RBC 4.16 10x6/uL (4.20-6.10); RDW 12.9 % (11.5-14.5); WBC 10.7 10x3/uL (4.8-10.8)
[2019-02-15 08:36] VITALS: BP 147/65
--- NOTE | 2019-02-15 09:07 | NUR ---
HIGH RISK / IMPAIRED SKIN INTEGRITY -TURN/REPOSITION Q 2 HOURS (HOURLY REPOSITIONING IF UP IN CHAIR -FLOAT HEELS OFF MATTRESS/PILLOWS -DAILY AND NEEDED PERSONAL CARE, USING CALMOSEPTINE CREAM IF REDNESS IS NOTED DUE TO INCONTINENCE/MOISTURE -SKIN ASSESSMENT Q SHIFT -CONSULT WOUND CARE IF NON-BLANCHABLE REDNESS OVER BONY PROMINENCES IS NOTED
--- NOTE | 2019-02-15 12:50 | NUR ---
FSBS 524. RECHECKED WITH LAB 533. BLOOD SUGARTREATED AND ENRIQUE BUSTILLO APN ON UNIT.ORDERS RECIEVED AND INITIATED
--- NOTE | 2019-02-15 13:33 | MORECARE ---
CASE MANAGEMENT DISCHARGE SUMMARY PATIENT: CHATO DRIVER GENE UNIT: [id number] ADM DATE: 02/12/19 AGE: 73 : 43 SEX: M ROOM/BED: D.2239 AUTHOR: CATHERINE DENNEY PHYSICIAN: REFERRING PHYSICIAN: ALVA LOPEZ MD DATE OF SERVICE: 02/15/19 Discharge Plan Patient Name: CHATO DRIVER Facility: [facility]:[place] : 1945 Planned Disposition: Home Anticipated Discharge Date: 02/14/19 Discharge Date: Expected LOS: 2 Initial Reviewer: [email or web address] Initial Review Date: 02/14/2019 Generated: 02/15/19 2:33 pm DCP- Discharge Planning Updated by [id number]: Katelynn Khalil on 02/14/19 1:[address] Patient Name: CHATO DRIVER Admission Status: ER Accout number: [id number] Admission Date: 02-12-2019 : 1945 Admission Diagnosis: Attending: ALVA LOPEZ Current LOS: 2 Anticipated DC Date: 02-14-2019 Planned Disposition: Home Primary Insurance: MEDICARE A & B Discharge Planning Comments: CM met with in the room to discuss discharge planning/needs. Patient is sleeping during the assessment. She states that he lives with her in a one story home. She states that "she takes care of him." She states that they have had home health in the past with [facility] and would like that resumed if needed. I discussed availability of inpatient rehab, SNF, Hospice, home health, DME. She states she has been considering hospice. I gave her a list of Hospice agencies. She states "I really don't know what all we may need, but he will want to go home." States he will refuse rehab. I also gave her information on private care, she states she has looked into it and it is unaffordable. She does state he may need a walker with a seat at discharge. I will need a doctors order for this and will order from [facility] as requested. CM will continue to follow and assist with discharge planning/needs. Electronic Field Service Engineer: Katelynn Khalil DCPIA - Discharge Planning Initial Assessment Updated by [id number]: Katelynn Khalil on 02/14/19 2:43 pm * Is the patient Alert and Oriented? No * How many steps to enter\\exit or inside your home? 2/0 * PCP Dr. Mcduffie * [facility] [address] * Preadmission Environment Home with Family * ADLs Partial Dependent * Partial ADLs (Assistance needed) Ambulation Bathing Medication Management Toileting Transfers * Equipment CPAP Nebulizer Other Oxygen Shower Chair * Other Equipment Portable oxygen Pulse oximeter Has a built in shower with seat * List name and contact numbers for known caregivers / representatives who currently or will assist patient after discharge: Lucas Driver - - [phone] * Verbal permission to speak to the caregivers and representatives has been obtained from the patient. Yes * Community resources currently utilized None * Additional services required to return to the preadmission environment? Yes * Can the patient safely return to the preadmission environment? Yes * Has this patient been hospitalized within the prior 30 days at any hospital? No External [facility]iders [facility] Next Contact Date: Service Request Date: Service Type: Resolution: Reviewer: Comments: Coverage Notice Reviewer: [id number] - Katelynn Khalil Notice Issued Date-Time: 02/14/2019 14:38 Notice Type: Patient Choice Letter Notice Delivered To: Family Member Relationship to Patient: Spouse Long Term Care Social Worker Name: Lucas Delivery Method: HAND - Hand Delivered Isabela Days: Prior Verbal Notification: Recipient Understood Notice: Yes Recipient Signature: Yes Med Rec Note Co-signed by Attending: Coverage Notice Comment: [facility] for [facility] Last DP export: 02/14/19 1:54 p Patient Name: CHATO DRIVER Page 11385 at 1333 All edits/amendments must be made on the electronic document DICTATION DATE: 02/15/191332 DIRECTOR OF LABOR RELATIONS: LEONIDAS 02/15/19 1333 RPT#: [id number] DC DATE: STATUS: ADM IN [facility] [address] [place] [address] END OF REPORT
[2019-02-15 14:44] VITALS: BP 145/60
--- NOTE | 2019-02-15 15:25 | NUR ---
FSBS 493,MEDS PER MAR ORDERED.IV SITED TO RIGHT HAND X1 STICK USING ASEPTIC TECH,22G. IV DCD THIS AM FROM LEFT HAND THAT WAS VERY TENDER AND HAND WAS SWOLLEN. CATH TIP WAS INTACT
[2019-02-15 16:36] VITALS: BP 145/54
--- NOTE | 2019-02-15 19:00 | NUR ---
BEDSIDE REPORT RECEIVED AND CARE OF PT ASSUMED. PT LYING ON LEFT SIDE WITH EYES CLOSED AND EASY RESPIRATIONS. IV TO RIGHT HAND SALINE LOCKED. O2 IN USE VIA NC AT 7L. MCMAHON CATHETER DRAINING TO GRAVITY WITH YELLOW URINE IN COLLECTION BAG. WILL MONITOR FOR NEEDS.
--- NOTE | 2019-02-15 20:36 | NUR ---
HS MEDICATIONS GIVEN. FSBS 145 THIS CHECK REQUIRING NO COVERAGE PER SLIDING SCALE. WILL CONTINUE TO MONITOR FOR NEEDS.
--- NOTE | 2019-02-15 20:50 | NUR ---
THOMAS ARCHIBALD GIVEN: ICE CREAM. WILL CONTINUE TO MONITOR FOR NEEDS.
[2019-02-15 21:00] VITALS: BP 196/62
[2019-02-16 00:13] VITALS: BP 120/48
[2019-02-16 05:14] VITALS: BP 164/68
[2019-02-16 07:08] LABS: ANION GAP 7.6 mmol/L (8-16); CALCIUM 8.6 mg/dL (8.5-10.1); CARBON DIOXIDE 35.7 mmol/L (21.0-32.0); CREATININE - SERUM 1.5 mg/dL (0.6-1.3); POTASSIUM - SERUM 4.3 mmol/L (3.5-5.1)
[2019-02-16 07:27] LABS: BASOPHILS 0.1 % (0-2); EOSINOPHILS 0.1 % (0-7); HEMATOCRIT 37.9 % (42.0-54.0); HEMOGLOBIN 11.8 g/dL (13.5-17.5); IMMATURE GRANULOCYTES 1.4 % (0-5); LYMPHOCYTES 7.6 % (15-50); MCH 28.1 pg (26.0-34.0); MCHC 31.1 g/dL (31.0-37.0); MCV 90.2 fL (80.0-100.0); MEAN PLATELET VOLUME 10.5 fL (7.4-10.4); MONOCYTES 4.9 % (2-11); NEUTROPHILS 85.9 % (40-80); PLATELET COUNT 189 10x3/uL (130-400); RDW 13.1 % (11.5-14.5); WBC 11.8 10x3/uL (4.8-10.8)
[2019-02-16 08:46] VITALS: BP 120/62
--- NOTE | 2019-02-16 09:15 | NUR ---
PATIENT MCMAHON DC'ED. 10+ ML OF FLUID IN BALLOON REMOVED. TOLERATED WELL.
--- NOTE | 2019-02-16 16:49 | NUR ---
ATTEMPTED TO CALL DR LOPEZ ABOUT HIGH BP. SEEMS THE TREND IS FOR PT BP TO RAISE OF AN EVENING.
--- NOTE | 2019-02-16 17:20 | NUR ---
PATIENT MADE A COMMENT ABOUT NEXT TIME HE IS "LIKE THAT" TO "PUT HIM DOWN." THAT HE DIDN'T MEAN ANYTHING PERSONALLY THAT HE KNEW, "WE COULDN'T DO ANYTHING WHEN HE FEELS LIKE HE COULDN'T BREATHE." SATS WERE 96-98% ON CPAP. AND PATIENT WAS COUGHING EARLIER. I OFFERED TO REPOSITION HIM. HE HAD JUST GOTTEN A BREATHING TX. CALLED HOUSE SUP. ADVISED TO RESCREEN.
[2019-02-16 17:33] VITALS: BP 103/74
--- NOTE | 2019-02-16 19:00 | NUR ---
BEDSIDE REPORT RECEIVED AND CARE OF PT ASSUMED. PT LYING IN MID SPANN'S POSITION WATCHING TV. IV TO RIGHT HAND SALINE LOCKED. O2 IN USE VIA HI FLOW NC AT 7L. WILL MONITOR FOR NEEDS.
[2019-02-16 21:00] VITALS: BP 170/56
--- NOTE | 2019-02-16 21:55 | NUR ---
HS MEDICAITONS GIVEN. FSBS 368 THIS CHECK REQUIRING COVERAGE WITH 10 UNITS OF INSULIN PER SLIDING SCALE. WILL CONTINUE TO MONITOR FOR NEEDS.
--- NOTE | 2019-02-16 22:25 | NUR ---
PT C/O HASN'T BEEN OFFERED A BATH IN A COUPLE OF DAYS. OFFERED TO BATH PT NOW AND CHANGE LINENS....PT REFUSED...STATES MAYBE TOMORROW.
[2019-02-17 00:16] VITALS: BP 171/46
[2019-02-17 05:07] VITALS: BP 142/73
--- NOTE | 2019-02-17 05:56 | NUR ---
PT C/O NO STOOL X2 DAYS. ALSO FSBS 70 THIS AM. GAVE 1 CUP PRUNE JUICE AND RAMA CRACKERS FOR CONSTIPATION AND LOW BLOOD SUGAR.
[2019-02-17 06:06] LABS: HEMATOCRIT 40.1 % (42.0-54.0); HEMOGLOBIN 12.7 g/dL (13.5-17.5); MCH 28.4 pg (26.0-34.0); MCHC 31.7 g/dL (31.0-37.0); MCV 89.7 fL (80.0-100.0); MEAN PLATELET VOLUME 10.2 fL (7.4-10.4); PLATELET COUNT 299 10x3/uL (130-400); RBC 4.47 10x6/uL (4.20-6.10); RDW 13.1 % (11.5-14.5); WBC 20.5 10x3/uL (4.8-10.8)
[2019-02-17 06:58] LABS: ANION GAP 6.1 mmol/L (8-16); CALCIUM 8.5 mg/dL (8.5-10.1); CARBON DIOXIDE 37.6 mmol/L (21.0-32.0); CREATININE - SERUM 1.3 mg/dL (0.6-1.3); POTASSIUM - SERUM 3.7 mmol/L (3.5-5.1)
[2019-02-17 07:15] LABS: LYMPHOCYTES 13 % (15-50); MONOCYTES 8 % (2-11); NEUTROPHILS 79 % (40-80); PLATELET ESTIMATE NORMAL
--- NOTE | 2019-02-17 08:00 | NUR ---
ALERT AND ORIENTED X4 SITTIN UP ON SIDE OF BED. PT STATES HAS HAD SOME COUGHING WHILE EATING AND REGURGITATING FOOD AT TIMES. LUNGS CTA W/O DYSPNEA. O2 7L HIFLOW. PRESENT AND AMBULATES TO BATROOM WITH SBA. IV TO RT. HAND S/L WITH NO S/S OF INFECTION/INFILTRATION.ENCOURAGTED TO USE CALL LIGHT FOR ASSSIT.
[2019-02-17 08:46] VITALS: BP 128/63
[2019-02-17 12:45] VITALS: BP 135/64
[2019-02-17 18:02] VITALS: BP 139/79
[2019-02-17 19:41] VITALS: BP 152/68
--- NOTE | 2019-02-17 19:45 | NUR ---
PT LYING ON LEFT SIDE SLEEPING, WITHOUT DISTRESS. AWAKENS TO VERBAL STIMULI, AOX4. DENIES PAIN OR NEEDS. LUNG SOUNDS DIMINISHED ON LEFT SIDE. SLIGHTLY SOB. O2 7L/HFNC. CL IN REACH, WILL CTM
--- NOTE | 2019-02-17 22:00 | NUR ---
PT GIVEN HS SNACK, RAMA CRACKERS AND SUGAR FREE ICE CREAM. DENIES OTHER NEEDS. CL IN REACH, WILL CTM
[2019-02-18 00:42] VITALS: BP 141/57
[2019-02-18 04:48] VITALS: BP 148/76
[2019-02-18 08:02] VITALS: BP 182/80
--- NOTE | 2019-02-18 09:00 | NUR ---
PT STATES WAS UP ALL NIGHT AND ENCOURAGED TO STAY UP TODAY TO ENABLE TO SLEEP BETTER TONIGHT. DYSPNEA NOTED W/O EXERTION WITH O2 8L PER HIFLOW. LUNGS DIMINISHED X4 POSTERIOR. PT WEARS BIPAP WHEN SLEEPING. PT UP ON SOB EATING BREAKFAST AND COURAGED TO EAT SLOW TO PREVENT REFLUX. ENCOURAGED TO USE CALLL IGHT FOR ASSSIT.
[2019-02-18 11:31] LABS: BASOPHILS 0.1 % (0-2); EOSINOPHILS 0 % (0-7); HEMATOCRIT 37.9 % (42.0-54.0); HEMOGLOBIN 11.8 g/dL (13.5-17.5); IMMATURE GRANULOCYTES 2.4 % (0-5); LYMPHOCYTES 6.7 % (15-50); MCH 28.2 pg (26.0-34.0); MCHC 31.1 g/dL (31.0-37.0); MCV 90.7 fL (80.0-100.0); MEAN PLATELET VOLUME 10.5 fL (7.4-10.4); MONOCYTES 6.5 % (2-11); NEUTROPHILS 84.3 % (40-80); RBC 4.18 10x6/uL (4.20-6.10); RDW 13.1 % (11.5-14.5)
[2019-02-18 11:32] LABS: PLATELET COUNT 201 10x3/uL (130-400); WBC 12.3 10x3/uL (4.8-10.8)
[2019-02-18 11:36] VITALS: BP 151/60
[2019-02-18 11:51] LABS: ANION GAP 6.3 mmol/L (8-16); CALCIUM 8.3 mg/dL (8.5-10.1); CARBON DIOXIDE 36.9 mmol/L (21.0-32.0); CREATININE - SERUM 1.5 mg/dL (0.6-1.3); POTASSIUM - SERUM 4.2 mmol/L (3.5-5.1)
[2019-02-18 16:57] VITALS: BP 140/60
--- NOTE | 2019-02-18 19:45 | NUR ---
PT LYING IN BED ON LEFT SIDE, AOX4. IV LEFT HAND SL. O2 6L/HFNC. SCDS ON. LUNG SOUNDS DIMINISHED ALL LOBES. DENIES PAIN OR NEEDS. CL IN REACH, WILL CTM
[2019-02-18 20:42] VITALS: BP 170/66
--- NOTE | 2019-02-18 21:00 | NUR ---
HS MEDS GIVEN WITHOUT DIFFICULTY. FSBS 302, COVERAGE PER SS. DENIES NEEDS, STATES HE IS VERY TIRED FROM STAYING UP ALL PREVIOUS NIGHT AND TODAY. ENCOURAGED TO CALL WITH NEEDS. CL IN REACH, WILL CTM
[2019-02-19 01:34] VITALS: BP 190/72
[2019-02-19 05:12] VITALS: BP 180/70
--- NOTE | 2019-02-19 07:15 | NUR ---
REC'D IN BED AWAKE AND ALERT. RESP EVEN ND UNLABORED WITH NO DISTRESS NOTED. CAN EXPREESS NEED AND WANTS. ASSESSMENT COMPLETED. AT BED. NO C/O NOTED. C/L IN REACH AT BEDSIDE.
[2019-02-19 07:44] VITALS: BP 130/70
[2019-02-19 10:29] LABS: BASOPHILS 0.1 % (0-2); EOSINOPHILS 0.1 % (0-7); HEMATOCRIT 37.4 % (42.0-54.0); HEMOGLOBIN 11.8 g/dL (13.5-17.5); IMMATURE GRANULOCYTES 1.9 % (0-5); LYMPHOCYTES 4.7 % (15-50); MCHC 31.6 g/dL (31.0-37.0); MONOCYTES 3.8 % (2-11); NEUTROPHILS 89.4 % (40-80); PLATELET COUNT 162 10x3/uL (130-400); RBC 4.22 10x6/uL (4.20-6.10); RDW 12.9 % (11.5-14.5); WBC 14.5 10x3/uL (4.8-10.8)
[2019-02-19 10:30] LABS: MCV 88.6 fL (80.0-100.0)
[2019-02-19 10:48] LABS: ALBUMIN 2.1 g/dL (3.4-5.0); ANION GAP 7.5 mmol/L (8-16); BILIRUBIN - TOTAL 0.23 mg/dL (0.2-1.3); CALCIUM 7.9 mg/dL (8.5-10.1); CARBON DIOXIDE 37.7 mmol/L (21.0-32.0); CREATININE - SERUM 1.6 mg/dL (0.6-1.3); POTASSIUM - SERUM 4.2 mmol/L (3.5-5.1); PROTEIN - SERUM 5.4 g/dL (6.4-8.2)
[2019-02-19 11:52] VITALS: BP 134/57
--- NOTE | 2019-02-19 15:39 | NUR ---
Nutrition follow-up: Diet: Low sodium PO intake 50-100% of most meals Labs reviewed Wt: 265# RDN following.
[2019-02-19 16:36] VITALS: BP 126/53
[2019-02-19 21:08] VITALS: BP 176/64
--- NOTE | 2019-02-19 21:30 | NUR ---
A/O WITH NO SIGNS OF ACUTE DISTRESS. IV TO THE LT HAND WITH NO REDNESS OR SWELLING NOTED. NC @5L. DENIES NO NEEDS AT THIS TIME. CONTINUE PLAN OF CARE.
[2019-02-20 01:05] VITALS: BP 134/78
[2019-02-20 04:38] VITALS: BP 162/66
[2019-02-20 07:12] LABS: INR 1.11 (0.85-1.17); PROTIME 13.8 SECONDS (11.6-15.0)
[2019-02-20 07:13] LABS: BASOPHILS 0.1 % (0-2); EOSINOPHILS 0 % (0-7); IMMATURE GRANULOCYTES 2.2 % (0-5); LYMPHOCYTES 6.5 % (15-50); MCH 28.4 pg (26.0-34.0); MCHC 31.7 g/dL (31.0-37.0); MCV 89.5 fL (80.0-100.0); NEUTROPHILS 87.2 % (40-80); PLATELET COUNT 168 10x3/uL (130-400); RBC 4.58 10x6/uL (4.20-6.10); WBC 17.8 10x3/uL (4.8-10.8)
[2019-02-20 07:17] LABS: ALBUMIN 2.4 g/dL (3.4-5.0); ANION GAP 4.4 mmol/L (8-16); BILIRUBIN - TOTAL 0.25 mg/dL (0.2-1.3); CALCIUM 8.6 mg/dL (8.5-10.1); CARBON DIOXIDE 37.9 mmol/L (21.0-32.0); CREATININE - SERUM 1.6 mg/dL (0.6-1.3); POTASSIUM - SERUM 4.3 mmol/L (3.5-5.1); PROTEIN - SERUM 6.2 g/dL (6.4-8.2)
[2019-02-20 08:06] LABS: APTT 24.8 SECONDS (22.8-39.4)
[2019-02-20 08:37] VITALS: BP 150/67
--- NOTE | 2019-02-20 10:43 | NUR ---
I have reviewed this patient and I concur with the Shift Assessment completed by the Licensed Practical Nurse today this shift.
[2019-02-20 13:27] VITALS: BP 125/53
[2019-02-20 16:28] VITALS: BP 137/62
--- NOTE | 2019-02-20 20:00 | NUR ---
A/O WITH NO SIGNS OF ACUTE DISTRESS. IV TO THE RT HAND WITH NO REDNESS OR SWELLING NOTED. DENIES NEEDS AT THIS TIME. CONTINUE PLAN OF CARE.
[2019-02-20 21:03] VITALS: BP 136/64
[2019-02-21 01:21] VITALS: BP 147/65
[2019-02-21 05:06] VITALS: BP 149/81
[2019-02-21 05:37] LABS: BASOPHILS 0.1 % (0-2); EOSINOPHILS 0 % (0-7); HEMATOCRIT 39.2 % (42.0-54.0); HEMOGLOBIN 12.5 g/dL (13.5-17.5); LYMPHOCYTES 5.4 % (15-50); MCH 28.3 pg (26.0-34.0); MCHC 31.9 g/dL (31.0-37.0); MCV 88.9 fL (80.0-100.0); MEAN PLATELET VOLUME 10.1 fL (7.4-10.4); MONOCYTES 3.6 % (2-11); NEUTROPHILS 88.9 % (40-80); PLATELET COUNT 191 10x3/uL (130-400); RBC 4.41 10x6/uL (4.20-6.10); WBC 18.4 10x3/uL (4.8-10.8)
[2019-02-21 06:17] LABS: ALBUMIN 2.4 g/dL (3.4-5.0); ANION GAP 9.6 mmol/L (8-16); BILIRUBIN - TOTAL 0.26 mg/dL (0.2-1.3); CALCIUM 8.1 mg/dL (8.5-10.1); CARBON DIOXIDE 35.7 mmol/L (21.0-32.0); CREATININE - SERUM 1.5 mg/dL (0.6-1.3); POTASSIUM - SERUM 4.3 mmol/L (3.5-5.1); PROTEIN - SERUM 5.8 g/dL (6.4-8.2)
[2019-02-21 08:20] VITALS: BP 134/65
--- NOTE | 2019-02-21 09:55 | MORECARE ---
CASE MANAGEMENT DISCHARGE SUMMARY PATIENT: CHATO DRIVER GENE UNIT: [id number] ADM DATE: 02/12/19 AGE: 73 : 43 SEX: M ROOM/BED: D.2239 AUTHOR: CATHERINE DENNEY PHYSICIAN: REFERRING PHYSICIAN: ALVA LOPEZ MD DATE OF SERVICE: 02/21/19 Discharge Plan Patient Name: CHATO DRIVER Facility: [facility]:[place] : 1945 Planned Disposition: Home Anticipated Discharge Date: 02/14/19 Discharge Date: Expected LOS: 2 Initial Reviewer: [email or web address] Initial Review Date: 02/14/2019 Generated: 02/21/19 10:55 am Comments DCP- Discharge Planning Updated by [email or web address]: Katelynn Buckleycruz on 02/21/19 8:[address] CM met with patient, he is awake in the room. He agrees to walker on discharge. He declines rehab and home health offered. CM will continue to follow and assist with discharge planning/needs. DCP- Discharge Planning Updated by [email or web address]: Katelynn Khalil on 02/14/19 1:[address] Patient Name: CHATO DRIVER Admission Status: ER Accout number: [id number] Admission Date: 02-12-2019 : 1945 Admission Diagnosis: Attending: ALVA LOPEZ Current LOS: 2 Anticipated DC Date: 02-14-2019 Planned Disposition: Home Primary Insurance: MEDICARE A & B Discharge Planning Comments: CM met with in the room to discuss discharge planning/needs. Patient is sleeping during the assessment. She states that he lives with her in a one story home. She states that "she takes care of him." She states that they have had home health in the past with [facility] and would like that resumed if needed. I discussed availability of inpatient rehab, SNF, Hospice, home health, DME. She states she has been considering hospice. I gave her a list of Hospice agencies. She states "I really don't know what all we may need, but he will want to go home." States he will refuse rehab. I also gave her information on private care, she states she has looked into it and it is unaffordable. She does state he may need a walker with a seat at discharge. I will need a doctors order for this and will order from [facility] as requested. CM will continue to follow and assist with discharge planning/needs. Onsite Health Coach: Katelynn Buckleycruz DCPIA - Discharge Planning Initial Assessment Updated by [email or web address]: Katelynn Remi on 02/14/19 2:43 pm * Is the patient Alert and Oriented? No * How many steps to enter\\exit or inside your home? 2/0 * PCP Dr. Mcduffie * Pharmacy [facility] on [address] * Preadmission Environment Home with Family * ADLs Partial Dependent * Partial ADLs (Assistance needed) Ambulation Bathing Medication Management Toileting Transfers * Equipment CPAP Nebulizer Other Oxygen Shower Chair * Other Equipment Portable oxygen Pulse oximeter Has a built in shower with seat * List name and contact numbers for known caregivers / representatives who currently or will assist patient after discharge: Lucas Driver - - [phone] * Verbal permission to speak to the caregivers and representatives has been obtained from the patient. Yes * Community resources currently utilized None * Additional services required to return to the preadmission environment? Yes * Can the patient safely return to the preadmission environment? Yes * Has this patient been hospitalized within the prior 30 days at any hospital? No Coverage Notice Reviewer: [id number] - Katelynn Remi Notice Issued Date-Time: 02/14/2019 14:38 Notice Type: Patient Choice Letter Notice Delivered To: Family Member Relationship to Patient: Spouse Watch Dial Maker Name: Lucas Delivery Method: HAND - Hand Delivered Isabela Days: Prior Verbal Notification: Recipient Understood Notice: Yes Recipient Signature: Yes Med Rec Note Co-signed by Attending: Coverage Notice Comment: [facility] for [facility] Last DP export: 02/15/19 12:33 p Patient Name: CHATO DRIVER Page 98760 at 0955 All edits/amendments must be made on the electronic document DICTATION DATE: 02/21/19954 KNITTED GARMENT FINISHER: LEONIDAS 02/21/19954 RPT#: [id number] DC DATE: STATUS: ADM IN [facility] [address] [place] [address] END OF REPORT
[2019-02-21 13:41] VITALS: BP 161/76
[2019-02-21 17:14] VITALS: BP 126/64
[2019-02-21 19:30] VITALS: BP 165/64
[2019-02-22 00:30] VITALS: BP 118/74
[2019-02-22 04:50] LABS: BASOPHILS 0.1 % (0-2); EOSINOPHILS 0 % (0-7); IMMATURE GRANULOCYTES 0.9 % (0-5); LYMPHOCYTES 4.8 % (15-50); MCH 28.3 pg (26.0-34.0); MCHC 31.6 g/dL (31.0-37.0); MCV 89.6 fL (80.0-100.0); MEAN PLATELET VOLUME 10.5 fL (7.4-10.4); MONOCYTES 4.6 % (2-11); NEUTROPHILS 89.6 % (40-80); PLATELET COUNT 161 10x3/uL (130-400); RBC 4.24 10x6/uL (4.20-6.10); RDW 13.2 % (11.5-14.5); WBC 14.3 10x3/uL (4.8-10.8)
[2019-02-22 05:00] VITALS: BP 164/70
[2019-02-22 05:43] LABS: ALBUMIN 2.3 g/dL (3.4-5.0); ANION GAP 6.6 mmol/L (8-16); BILIRUBIN - TOTAL 0.22 mg/dL (0.2-1.3); CALCIUM 8.1 mg/dL (8.5-10.1); CARBON DIOXIDE 34.6 mmol/L (21.0-32.0); CREATININE - SERUM 1.6 mg/dL (0.6-1.3); POTASSIUM - SERUM 4.2 mmol/L (3.5-5.1); PROTEIN - SERUM 5.6 g/dL (6.4-8.2)
--- NOTE | 2019-02-22 07:30 | NUR ---
PT SITTING UP ON SIDE OF BED DRINKING COFFEE. O2 @ 5L NC IN PLACE. DENIES PAIN AT THIS TIME. PT VOICES ANTICIPATION OF POSSIBLE D/C TODAY. SALINE LOCK TO RIGHT HAND, SITE WITHOUT REDNESS OR EDEMA. DENIES FURTHER NEEDS AT THIS TIME. CL WITHIN REACH. ENCOURAGED TO CALL WITH NEEDS. CONTINUE POC
[2019-02-22 09:21] VITALS: BP 116/59
[2019-02-22 12:54] VITALS: BP 140/72
[2019-02-22 17:28] VITALS: BP 160/59
[2019-02-22 19:30] VITALS: BP 184/70
[2019-02-23 00:30] VITALS: BP 128/68
[2019-02-23 05:19] VITALS: BP 136/70
[2019-02-23 08:50] VITALS: BP 141/57
--- NOTE | 2019-02-23 09:00 | NUR ---
ALERT AND ORIENTED X4 WITH PRESENT. BREATH SOUNDS DIMINISHED X4 POSTERIOR. O2 4L N/C. IV S/L TO LEFT HAND WITH NO S/S OF INFECTION/INFILTRATION. DENIES ANY PAIN OR DISCOMFORT AND ENCOURAGED TO USE CALL LIGHT FOR ASSSIT.
[2019-02-23] MEDS ORDERED: NICODERM C1 PATCH .1 TRANSDERM (10:56)
[2019-02-23] MEDS ORDERED: LISINOPRIL40 MG PO (10:56)
[2019-02-23] MEDS ORDERED: MUCINEX DM ER1 EAC1 PO (10:57)
[2019-02-23] MEDS ORDERED: TESSALON PERLE100 MG PO (10:57)
[2019-02-23] MEDS ORDERED: SINGULAIR10 MG PO (10:57)
[2019-02-23] MEDS ORDERED: PULMICORT0.5 MG/21 UPD (10:57)
[2019-02-23] MEDS ORDERED: FLORAJEN3 CAPS460 MG PO (10:58)
[2019-02-23] MEDS ORDERED: LEVOFLOXACIN500 MG PO (10:59)
[2019-02-23] MEDS ORDERED: PREDNISONE10 MG PO (10:59)
[2019-02-23] MEDS ORDERED: LASIX40 MG PO (10:59)
[2019-02-23] MEDS ORDERED: POTASSIUM CHLO20 MEQ PO (11:00)
--- NOTE | 2019-02-23 11:30 | MORECARE ---
CASE MANAGEMENT DISCHARGE SUMMARY PATIENT: CHATO DAMON GENE UNIT: [id number] ADM DATE: 02/12/19 AGE: 73 : 43 SEX: M ROOM/BED: D.2239 AUTHOR: CATHERINE DENNEY PHYSICIAN: REFERRING PHYSICIAN: ALVA LOPEZ MD DATE OF SERVICE: 02/23/19 Discharge Plan Patient Name: CHATO DAMON Facility: [facility]:[place] : 1945 Planned Disposition: Home Anticipated Discharge Date: 02/14/19 Discharge Date: Expected LOS: 2 Initial Reviewer: [id number] Initial Review Date: 02/14/2019 Generated: 02/23/19 12:30 pm Comments DCP- Discharge Planning Updated by [id number]: Katelynn Buckleycruz on 02/23/19 10:[address] Patient Name: CHATO DAMON Encounter No: [id number] : 1945 Primary Insurance: MEDICARE A & B Anticipated DC Date: 02-14-2019 Planned Disposition: Home External Planned Provider: : DCP follow-up note: Patient and family in agreement with discharge plan. No changes to plan. Spouse has already picked up patient's rollator walker from [employer]. He declines need for HHS. House calls will follow. Case management will follow and assist as needed. Katelynn Khalil DCP- Discharge Planning Updated by [id number]: Katelynn Khalil on 02/21/19 8:[address] CM met with patient, he is awake in the room. He agrees to walker on discharge. He declines rehab and home health offered. CM will continue to follow and assist with discharge planning/needs. DCP- Discharge Planning Updated by [email or web address]: Katelynn Khalil on 02/14/19 1:[address] Patient Name: CHATO DAMON Admission Status: ER Accout number: [id number] Admission Date: 02-12-2019 : 1945 Admission Diagnosis: Attending: ALVA LOPEZ Current LOS: 2 Anticipated DC Date: 02-14-2019 Planned Disposition: Home Primary Insurance: MEDICARE A & B Discharge Planning Comments: CM met with in the room to discuss discharge planning/needs. Patient is sleeping during the assessment. She states that he lives with her in a one story home. She states that "she takes care of him." She states that they have had home health in the past with [facility] and would like that resumed if needed. I discussed availability of inpatient rehab, SNF, Hospice, home health, DME. She states she has been considering hospice. I gave her a list of Hospice agencies. She states "I really don't know what all we may need, but he will want to go home." States he will refuse rehab. I also gave her information on private care, she states she has looked into it and it is unaffordable. She does state he may need a walker with a seat at discharge. I will need a doctors order for this and will order from [facility] as requested. CM will continue to follow and assist with discharge planning/needs. Command And Control Officer: Katelynn Khalil DCPIA - Discharge Planning Initial Assessment Updated by [id number]: Katelynn Khalil on 02/14/19 2:43 pm * Is the patient Alert and Oriented? No * How many steps to enter\\exit or inside your home? 2/0 * PCP Dr. Mcduffie * Pharmacy [facility] on [address] * Preadmission Environment Home with Family * ADLs Partial Dependent * Partial ADLs (Assistance needed) Ambulation Bathing Medication Management Toileting Transfers * Equipment CPAP Nebulizer Other Oxygen Shower Chair * Other Equipment Portable oxygen Pulse oximeter Has a built in shower with seat * List name and contact numbers for known caregivers / representatives who currently or will assist patient after discharge: Lucas Villa - - [phone] * Verbal permission to speak to the caregivers and representatives has been obtained from the patient. Yes * Community resources currently utilized None * Additional services required to return to the preadmission environment? Yes * Can the patient safely return to the preadmission environment? Yes * Has this patient been hospitalized within the prior 30 days at any hospital? No Coverage Notice Reviewer: [id number] - Katelynn Khalil Notice Issued Date-Time: 02/14/2019 14:38 Notice Type: Patient Choice Letter Notice Delivered To: Family Member Relationship to Patient: Spouse Pick Pulling Machine Tender Name: Lucas Delivery Method: HAND - Hand Delivered Isabela Days: Prior Verbal Notification: Recipient Understood Notice: Yes Recipient Signature: Yes Med Rec Note Co-signed by Attending: Coverage Notice Comment: [facility] for [facility] [address] Reviewer: [id number] Sarah Khalil Notice Issued Date-Time: 02/22/2019 11:16 Notice Type: IM Discharge Notice Notice Delivered To: Family Member Relationship to Patient: Spouse Pick Pulling Machine Tender Name: Delivery Method: HAND - Hand Delivered Isabela Days: Prior Verbal Notification: Recipient Understood Notice: Yes Recipient Signature: Yes Med Rec Note Co-signed by Attending: Coverage Notice Comment: IMM explained, signed by , given, copy placed in MR Last DP export: 02/21/19 8:55 Patient Name: CHATO DAMON Page [id number] at 1130 All edits/amendments must be made on the electronic document DICTATION DATE: 02/23/19 113 PROJECT SUPERINTENDENT: LEONIDAS 02/23/19 1130 RPT#: [id number] DC DATE: STATUS: ADM IN [facility] [address] [place] [address] END OF REPORT
--- NOTE | 2019-02-23 13:30 | NUR ---
IV DISCONTINUED AND VERBALIZED UNDERSTANDING OF DISCHARGE INSTRUCTIONS WITH PATINET LEAVING UNDER CARE OF WITH PATIENT STABLE AT DISCHARGE.
--- NOTE | 2019-02-25 13:52 | MORECARE ---
CASE MANAGEMENT DISCHARGE SUMMARY PATIENT: CHATO DRIVER GENE UNIT: [id number] ADM DATE: 02/12/19 AGE: 73 : 43 SEX: M ROOM/BED: D.2239 AUTHOR: CATHERINE DENNEY PHYSICIAN: REFERRING PHYSICIAN: ALVA LOPEZ MD DATE OF SERVICE: 02/25/19 Discharge Plan Patient Name: CHATO DRIVER Facility: [facility]:[place] : 1945 Planned Disposition: Home Anticipated Discharge Date: 02/14/19 Discharge Date: 02/23/2019 Expected LOS: 2 Initial Reviewer: [id number] Initial Review Date: 02/14/2019 Generated: 02/25/19 2:51 pm Comments DCP- Discharge Planning Updated by [id number]: Katelynn Marciocruz on 02/23/19 10:[address] Patient Name: CHATO DRIVER Encounter No: [id number] : 1945 Primary Insurance: MEDICARE A & B Anticipated DC Date: 02-14-2019 Planned Disposition: Home External Planned Provider: : DCP follow-up note: Patient and family in agreement with discharge plan. No changes to plan. Spouse has already picked up patient's rollator walker from [employer]. He declines need for HHS. House calls will follow. Case management will follow and assist as needed. Katelynn Khalil DCP- Discharge Planning Updated by [id number]: Katelynn Khalil on 02/21/19 8:[address] CM met with patient, he is awake in the room. He agrees to walker on discharge. He declines rehab and home health offered. CM will continue to follow and assist with discharge planning/needs. DCP- Discharge Planning Updated by [id number]: Katelynn Khalil on 02/14/19 1:[address] Patient Name: CHATO DRIVER Admission Status: ER Accout number: [id number] Admission Date: 02-12-2019 : 1945 Admission Diagnosis: Attending: ALVA LOPEZ Current LOS: 2 Anticipated DC Date: 02-14-2019 Planned Disposition: Home Primary Insurance: MEDICARE A & B Discharge Planning Comments: CM met with in the room to discuss discharge planning/needs. Patient is sleeping during the assessment. She states that he lives with her in a one story home. She states that "she takes care of him." She states that they have had home health in the past with [facility] and would like that resumed if needed. I discussed availability of inpatient rehab, SNF, Hospice, home health, DME. She states she has been considering hospice. I gave her a list of Hospice agencies. She states "I really don't know what all we may need, but he will want to go home." States he will refuse rehab. I also gave her information on private care, she states she has looked into it and it is unaffordable. She does state he may need a walker with a seat at discharge. I will need a doctors order for this and will order from [facility] as requested. CM will continue to follow and assist with discharge planning/needs. Telecommunications Officer: Katelynn Khalil DCPIA - Discharge Planning Initial Assessment Updated by [id number]: Katelynn Khalil on 02/14/19 2:43 pm * Is the patient Alert and Oriented? No * How many steps to enter\\exit or inside your home? 2/0 * PCP Dr. Mcduffie * Pharmacy [facility] on [address] * Preadmission Environment Home with Family * ADLs Partial Dependent * Partial ADLs (Assistance needed) Ambulation Bathing Medication Management Toileting Transfers * Equipment CPAP Nebulizer Other Oxygen Shower Chair * Other Equipment Portable oxygen Pulse oximeter Has a built in shower with seat * List name and contact numbers for known caregivers / representatives who currently or will assist patient after discharge: Lucas Driver - - [phone] * Verbal permission to speak to the caregivers and representatives has been obtained from the patient. Yes * Community resources currently utilized None * Additional services required to return to the preadmission environment? Yes * Can the patient safely return to the preadmission environment? Yes * Has this patient been hospitalized within the prior 30 days at any hospital? No Coverage Notice Reviewer: [id number] - Katelynn Khalil Notice Issued Date-Time: 02/14/2019 14:38 Notice Type: Patient Choice Letter Notice Delivered To: Family Member Relationship to Patient: Spouse Departure Clerk Name: Lucas Delivery Method: HAND - Hand Delivered Isabela Days: Prior Verbal Notification: Recipient Understood Notice: Yes Recipient Signature: Yes Med Rec Note Co-signed by Attending: Coverage Notice Comment: [facility] for [facility] Reviewer: [id number] Sarah Khalil Notice Issued Date-Time: 02/22/2019 11:16 Notice Type: IM Discharge Notice Notice Delivered To: Family Member Relationship to Patient: Spouse Departure Clerk Name: Delivery Method: HAND - Hand Delivered Isabela Days: Prior Verbal Notification: Recipient Understood Notice: Yes Recipient Signature: Yes Med Rec Note Co-signed by Attending: Coverage Notice Comment: IMM explained, signed by , given, copy placed in MR Last DP export: 02/23/19 10:30 Patient Name: CHATO DRIVER Page [id number] at 1352 All edits/amendments must be made on the electronic document DICTATION DATE: 02/25/19 1351 MANAGER INFORMATION: LEONIDAS 02/25/19 1351 RPT#: [id number] DC DATE:02/23/19 STATUS: DIS IN [facility] [address] [place] [address] END OF REPORT
== END 2019-02-23 13:30 | disposition home or self-care (01) | DRG 291 ==
LOC: D.ER 04:38 → D.MS 05:57
PROVIDERS: Emergency Medicine; Internal Medicine Pulmonary Disease; ADMIT Internal Medicine Nephrology; ATTEND Internal Medicine Nephrology
DX: I11.0 Hypertensive heart disease with heart failure (principal); J96.22 Acute and chronic respiratory failure with hypercapnia; G93.41 Metabolic encephalopathy; J96.21 Acute and chronic respiratory failure with hypoxia; J18.9 Pneumonia, unspecified organism; E87.2 Acidosis; N17.9 Acute kidney failure, unspecified; I50.23 Acute on chronic systolic (congestive) heart failure; I25.10 Atherosclerotic heart disease of native coronary artery without angina pectoris; E78.5 Hyperlipidemia, unspecified; J44.9 Chronic obstructive pulmonary disease, unspecified; G47.33 Obstructive sleep apnea (adult) (pediatric); E66.9 Obesity, unspecified; Z68.36 Body mass index [BMI] 36.0-36.9, adult; Z66 Do not resuscitate; F17.200 Nicotine dependence, unspecified, uncomplicated; E11.40 Type 2 diabetes mellitus with diabetic neuropathy, unspecified; E11.65 Type 2 diabetes mellitus with hyperglycemia

== ENCOUNTER → 2019-09-11 14:49 | Outpatient (CLI) | payer MEDICARE, OTHER ==
[2019-02-12 13:22] VITALS: BMI 35.9
[~2019-09-11 14:49] MED LIST changes: +FLORAJEN3 CAPS460 MG PO; +LEVOFLOXACIN500 MG PO; +LISINOPRIL40 MG PO; +MUCINEX DM ER1 EAC1 PO; +NICODERM C1 PATCH .1 TRANSDERM; +POTASSIUM CHLO20 MEQ PO; +PULMICORT0.5 MG/21 UPD; +SINGULAIR10 MG PO; +TESSALON PERLE100 MG PO
--- NOTE | 2019-09-11 15:41 | NUR ---
PT SCHEDULED FOR COMPLETE ABDOMEN FOR AAA AT 1500. PT ARRIVED NOT NPO U/S ATTEMPTED BUT I COULD NOT SEE AORTA OR MUCH OF ANY ANATOMY AAT ALL DUE TO OVERLYING GAS. I CANCELLED TODAYS EXAM AND I CALLED DR HUMPHREYS OFFICE TO SEE IF HE NEEDED TO BE DONE TOMORROW. WAS TOLD HE HAS APPT ON THE AND ALSO HAS A CT THEN. I OFFERED TO GET CT DONE TODAY OR AT LEAST SCHEDULE BOTH FOR SAME DAY. [facility] OFFICE CALLED BACK AND SAID THEY WOULD RESCHEDULE PT. JANUSZ GAINES
== END | disposition home or self-care (01) ==
LOC: D.US 09:00
PROVIDERS: ATTEND Internal Medicine Cardiovascular Disease
DX: I71.4 Abdominal aortic aneurysm, without rupture (principal)